=== PATIENT | male | born 1965 | race Caucasian/White ===

== ENCOUNTER → 2018-01-17 09:24 | Outpatient (CLI) | payer OTHER, SELFPAY ==
--- NOTE | 2018-01-17 09:24 | DT_ITS ---
This patient was seen during an EMR downtime January 15, 2018 - January 22, 2018. This patient may have a combination of paper and electronic documentation or all paper documentation. All documentation is viewable within the e-chart portion of [facility] for each patient visit.
[2018-01-22 04:18] LABS: Absolute Lymphocyte Count 1.56 X10^3/ul (0.83-4.51); Absolute Neutrophil Count 3.8 X10^3/uL (2.0-7.7); Basophil% 0.8 % (0-1); Eosinophils% 4.2 % (0-5); Hemoglobin 15.6 g/dl (13.0-16.5); Lymphocyte # 1.56 X10^3/ul (4.0); Lymphocyte % 25.2 % (19-41); Mean Corp Hgb Conc 34.7 g/gl (32-36); Mean Corpuscular Hgb 29.3 pg (27.0-32.0); Mean Corpuscular Volume 84.6 fL (80-94); Mean Platelet Vol. 10.7 fl (6.2-12.0); Monocyte% 8.6 % (0-10); Neutrophil # 3.78 X10^3/uL (2.7-7.7); POSITIVE COUNT NO; POSITIVE DIFFERENTIAL NO; POSITIVE MORPHOLOGY NO; Platelet Count 320 K/mm3 (150-450); RBC Distribution Width CV 13.5 % (11.6-14.6); RBC Distribution Width SD 41.7 fl (35.1-43.9); Red Blood Count 5.32 M/mm3 (4.6-6.2); White Blood Count 6.2 K/mm3 (4.4-11.0)
[2018-01-22 08:15] LABS: BUN 13 mg/dL (7-18); BUN/Creat Ratio 13.3 RATIO (10-20); Creatinine, Serum 0.98 mg/dL (0.70-1.30); EST Glomerular Filtration Rate 86 mL/min (>60); Est Glom Filt Rate - Afr Amer 104 mL/min (>60); Glucose 126 mg/dL (74-106); Protein, Total 7.6 g/dL (6.4-8.2)
[2018-01-22 08:16] LABS: ALB/GLOB Ratio 1.2 RATIO (0.9-2.4); AST(SGOT) 22 U/L (15-37); Alanine Aminotransfer ALT/SGPT 40 U/L (16-61); Albumin, Serum 4.1 g/dL (3.2-5.0); Alkaline Phosphatase 54 U/L (45-117); Anion Gap 9 (5-15); Calcium,Total 8.9 mg/dL (8.5-10.1); Chloride 104 mmol/L (98-107); Cholesterol 156 mg/dL (200); Globulin 3.5 g/dL (2.2-4.2); High Density Lipoprotein 51 mg/dL; PSA,Total - Annual Screen 2.34 ng/mL (0.00-4.00); Potassium 3.6 mmol/L (3.5-5.1); Sodium Level 140 mmol/L (136-145); Triglycerides 72 mg/dL; Very Low Density Lipoprotein 14 mg/dL (5-40)
[2018-01-22 08:17] LABS: Hemoglobin A1c 6.1 % (4.2-6.3); Microalbumin,Random Urine 21.7 mg/L (NO RANGE EST.)
== END ==
PROVIDERS: Family Provider Family Medicine; PCP Family Medicine; Visit Provider Family Medicine
DX: E11.9 Type 2 diabetes mellitus without complications (principal); I10 Essential (primary) hypertension; Z12.5 Encounter for screening for malignant neoplasm of prostate
CPT/HCPCS: 36415; 80053; 80061; 82043; 82570; 83036; 84153; 85025; G0103

== ENCOUNTER 2019-01-01 08:05 | Day surgery (SDC) | payer OTHER, SELFPAY ==
--- NOTE | 2019-01-01 | MASS_PTH ---
PATIENT: ZAC ROCHA LOC: [facility] [place] U#:[id number] AGE/SX: 53/M ROOM: RE01/01/[address]: Dr. Edward Kitchen MD : [id number] BED: DIS: 01/01/2019 SPEC #: [id number] RECD: 01/01/19 14:11 STATUS: JENNIFER EDGARDO #: [id number] ELLEN: 01/01/19 00:[address]: Edward Kitchen DEPT: SURGICAL PATHOLOGY RECD BY: Jacek Delgado ENTERED: 01/01/19 14:11 SP TYPE: Mass OTHR DR: Dr. Salvador Barnes, DO Tissues: Ear, NOS Procedures: PAS Fungus (control) Special Stain Group I Surgery Specimen Level IV HEADER OPERATION: Excision mass left ear PRE-OP DIAGNOSIS: Mass left ear, extra-auditory meatus TISSUE SUBMITTED: Left ear mass, extra-auditory meatus MICROSCOPIC DIAGNOSIS Left ear mass, biopsy: Inflamed verrucous keratosis. Negative for fungal organisms. See comment. AM:sean 01/02/19 COMMENT PASF stain with matched control supports the above diagnosis. MICROSCOPIC DESCRIPTION Slides are reviewed. GROSS DESCRIPTION Received in fixative is one container labeled with the patient's name and designated left ear mass, extra-auditory meatus. The specimen consists of one irregular fragment of santiago-yellow soft tissue/possible skin measuring 0.4 x 0.2 x 0.2 cm. The specimen is totally submitted in one cassette. / CE:sean 01/01/19 TC:5 CPT: 45839, 62959
[2019-01-01 08:46] VITALS: BP 132/92; PULSE 72; RESP 18; TEMP 36.8; O2SAT 98; BMI 30.5
[2019-01-01 09:06] LABS: Bedside Glucose 146 mg/dL (70-110)
[2019-01-01] MEDS: Bacitracin 500 UNITS/GM PACKET (11:45)
--- NOTE | 2019-01-01 11:49 | PCM.OPRPT ---
Report of Operation Date of Procedure: 01/01/19 Pre-Operative Diagnosis: Mass left external auditory meatus Post-Operative Diagnosis: See path report Surgery/Procedure Performed:: Excision mass left external auditory meatus Description of Surgical Findings:: Procedure the patient was placed supine on the operating room table. Sterile drapes are applied and the left external auditory meatus was prepped with Betadine solution. The mass appeared to involve half the circumference of the left external auditory meatus. 1% Xylocaine plain mixed with epinephrine was infiltrated around the mass and an elliptical shaped incision was outlined. The mass was completely excised. Excise specimen measured 1.5 x 1 cm in dimension. The wound was closed in layers with interrupted sutures of 5-0 nylon and 5-0 chromic. Bacitracin ointment was applied to the incision site and the procedure was considered terminated the patient was returned to his room in satisfactory condition. Edward Kitchen MD
[2019-01-01 12:08] VITALS: BP 128/84; BP 132/92; PULSE 59; RESP 16; TEMP 36.6; O2SAT 96
== END 2019-01-01 12:16 | disposition home or self-care (01) ==
LOC: SDC 08:06 → AC 08:08
PROVIDERS: Family Provider Family Medicine; PCP Family Medicine; Referring Provider Otolaryngology Otolaryngology/Facial Plastic Surgery; Visit Provider Otolaryngology Otolaryngology/Facial Plastic Surgery
PROC: (CPT 11442; principal; 2019-01-01 09:40)
DX: L82.0 Inflamed seborrheic keratosis (principal); I10 Essential (primary) hypertension; E11.9 Type 2 diabetes mellitus without complications
CPT/HCPCS: 11442; 82962; 88305; 88312

== ENCOUNTER → 2019-01-24 08:50 | Outpatient (CLI) | payer OTHER, SELFPAY ==
[2019-01-01 08:46] VITALS: BMI 30.5
[2019-01-24 10:07] LABS: Absolute Lymphocyte Count 2.16 X10^3/ul (0.83-4.51); Absolute Neutrophil Count 2.9 X10^3/uL (2.0-7.7); Basophil# 0.05 X10^3/uL; Basophil% 0.8 % (0-1); Eosinophil# 0.46 X10^3/uL; Eosinophils% 7.3 % (0-5); Hematocrit 41.9 % (40-54); Hemoglobin 14.8 g/dl (13.0-16.5); Lymphocyte # 2.16 X10^3/ul (4.0); Lymphocyte % 34.4 % (19-41); Mean Corp Hgb Conc 35.3 g/gl (32-36); Mean Corpuscular Hgb 29.8 pg (27.0-32.0); Mean Corpuscular Volume 84.3 fL (80-94); Mean Platelet Vol. 10.5 fl (6.2-12.0); Monocyte# 0.67 X10^3/uL; Monocyte% 10.7 % (0-10); Neutrophil # 2.93 X10^3/uL (2.7-7.7); Neutrophil % 46.6 % (47-70); Platelet Count 286 K/mm3 (150-450); RBC Distribution Width CV 13.8 % (11.6-14.6); RBC Distribution Width SD 42.6 fl (35.1-43.9); Red Blood Count 4.97 M/mm3 (4.6-6.2); White Blood Count 6.3 K/mm3 (4.4-11.0)
[2019-01-24 10:11] LABS: POSITIVE COUNT NO; POSITIVE DIFFERENTIAL NO; POSITIVE MORPHOLOGY NO
[2019-01-24 10:18] LABS: Hemoglobin A1c 5.9 % (4.2-6.3)
[2019-01-24 10:22] LABS: Microalbumin,Random Urine 12.1 mg/L (NO RANGE EST.); Microalbumin:Creatinine Ratio 5.5 mg/g CRE (<30 mg/g CRE)
[2019-01-24 10:25] LABS: ALB/GLOB Ratio 1.1 RATIO (0.9-2.4); AST(SGOT) 15 U/L (15-37); Alanine Aminotransfer ALT/SGPT 34 U/L (16-61); Albumin, Serum 3.8 g/dL (3.2-5.0); Alkaline Phosphatase 44 U/L (45-117); Anion Gap 6 (5-15); BUN 13 mg/dL (7-18); BUN/Creat Ratio 13.3 RATIO (10-20); Calcium,Total 8.9 mg/dL (8.5-10.1); Chloride 108 mmol/L (98-107); Cholesterol 144 mg/dL (200); Creatinine, Serum 0.98 mg/dL (0.70-1.30); EST Glomerular Filtration Rate 86 mL/min (>60); Est Glom Filt Rate - Afr Amer 104 mL/min (>60); Globulin 3.4 g/dL (2.2-4.2); Glucose 112 mg/dL (74-106); High Density Lipoprotein 55 mg/dL; Potassium 3.6 mmol/L (3.5-5.1); Protein, Total 7.2 g/dL (6.4-8.2); Sodium Level 139 mmol/L (136-145); Triglycerides 94 mg/dL; Very Low Density Lipoprotein 19 mg/dL (5-40)
== END ==
PROVIDERS: Family Provider Family Medicine; PCP Family Medicine; Referring Provider Family Medicine; Visit Provider Family Medicine
DX: Z00.00 Encounter for general adult medical examination without abnormal findings (principal); E11.9 Type 2 diabetes mellitus without complications; Z12.5 Encounter for screening for malignant neoplasm of prostate
CPT/HCPCS: 36415; 80053; 80061; 82043; 82570; 83036; 84153; 85025; G0103

== ENCOUNTER → 2020-01-28 13:25 | Outpatient (CLI) | payer OTHER, SELFPAY ==
[2020-01-28 15:16] LABS: PSA,Total - Annual Screen 1.96 ng/mL (0.00-4.00)
[2020-01-28 15:47] LABS: Hemoglobin A1c 6.5 % (3.8-5.6)
== END ==
PROVIDERS: Family Provider Family Medicine; PCP Family Medicine; Visit Provider Family Medicine
DX: Z00.00 Encounter for general adult medical examination without abnormal findings (principal); Z12.5 Encounter for screening for malignant neoplasm of prostate; E11.9 Type 2 diabetes mellitus without complications
CPT/HCPCS: 36415; 83036; 84153; G0103

== ENCOUNTER → 2020-03-24 10:05 | Outpatient (CLI) | payer OTHER, SELFPAY ==
[2020-03-24 13:17] LABS: ALB/GLOB Ratio 1.2 RATIO (0.9-2.4); AST(SGOT) 14 U/L (15-37); Alanine Aminotransfer ALT/SGPT 35 U/L (16-61); Alkaline Phosphatase 42 U/L (45-117); Anion Gap 10 (5-15); BUN 18 mg/dL (7-18); BUN/Creat Ratio 18.5 RATIO (10-20); Calcium,Total 9.1 mg/dL (8.5-10.1); Chloride 105 mmol/L (98-107); Creatinine, Serum 0.97 mg/dL (0.70-1.30); EST Glomerular Filtration Rate 86 mL/min (>60); Est Glom Filt Rate - Afr Amer 104 mL/min (>60); Globulin 3.3 g/dL (2.2-4.2); Glucose 140 mg/dL (74-106); Potassium 3.4 mmol/L (3.5-5.1); Protein, Total 7.3 g/dL (6.4-8.2); Sodium Level 139 mmol/L (136-145); T4 Free Direct 1.07 ng/dL (0.76-1.46); Thyroid Stim Hormone (TSH) 1.84 uIU/mL (0.358-3.74)
== END ==
PROVIDERS: PCP Family Medicine; Visit Provider Family Medicine
DX: E01.0 Iodine-deficiency related diffuse (endemic) goiter (principal); I10 Essential (primary) hypertension
CPT/HCPCS: 36415; 80053; 84439; 84443

== ENCOUNTER → 2020-08-21 16:27 | Outpatient (CLI) | payer BC, SELFPAY ==
[2020-08-21 18:46] LABS: Cholesterol 159 mg/dL (200); High Density Lipoprotein 58 mg/dL; Triglycerides 94 mg/dL; Very Low Density Lipoprotein 19 mg/dL (5-40)
== END ==
PROVIDERS: PCP Family Medicine; Visit Provider Family Medicine
DX: Z00.00 Encounter for general adult medical examination without abnormal findings (principal)
CPT/HCPCS: 36415; 80061

== ENCOUNTER → 2021-06-15 | Outpatient (CLI) | payer BC, SELFPAY | END | disposition home or self-care (01) | LOC: LABSPEC 06-16 16:47 | PROVIDERS: PCP Family Medicine; Visit Provider Family Medicine | DX: Z20.822 Contact with and (suspected) exposure to COVID-19 (principal) | CPT/HCPCS: 87635; U0005; U0003 ==

== ENCOUNTER 2021-10-18 12:43 | Outpatient (CLI) | payer BC, SELFPAY | END 2021-10-18 23:59 | disposition home or self-care (01) | PROVIDERS: PCP Family Medicine; Referring Provider Family Medicine; Visit Provider Family Medicine | DX: R00.2 Palpitations (principal) | CPT/HCPCS: 93225; 93226 ==

== ENCOUNTER → 2022-05-27 | Outpatient (CLI) | payer BC, SELFPAY ==
[2022-05-27 07:18] LABS: Absolute Lymphocyte Count 1.99 X10^3/uL (0.83-4.51); Absolute Neutrophil Count 3.2 X10^3/uL (2.0-7.7); Basophil# 0.05 X10^3/uL; Basophil% 0.8 % (0-1); Eosinophil# 0.35 X10^3/uL; Eosinophils% 5.5 % (0-5); Hematocrit 42.6 % (40-54); Hemoglobin 15.3 g/dL (13.0-16.5); Lymphocyte # 1.99 X10^3/ul (0.83-4.51); Lymphocyte % 31.3 % (19-41); Mean Corp Hgb Conc 35.9 g/dL (32-36); Mean Corpuscular Hgb 30.8 pg (27.0-32.0); Mean Corpuscular Volume 85.9 fL (80-94); Mean Platelet Vol. 9.9 fl (6.2-12.0); Monocyte# 0.71 X10^3/uL; Monocyte% 11.2 % (0-10); NRBC Flagged by Analyzer 0 % (0-5); Neutrophil # 3.24 X10^3/uL (2.7-7.7); Neutrophil % 50.9 % (47-70); Platelet Count 317 K/mm3 (150-450); RBC Distribution Width CV 12.5 % (11.6-14.6); RBC Distribution Width SD 39.3 fl (35.1-43.9); Red Blood Count 4.96 M/mm3 (4.6-6.2); White Blood Count 6.4 K/mm3 (4.4-11.0)
[2022-05-27 07:56] LABS: Microalbumin,Random Urine 8.8 mg/L (NO RANGE EST.); Microalbumin:Creatinine Ratio 4.6 mg/g CRE (<30 mg/g CRE)
[2022-05-27 08:11] LABS: Hemoglobin A1c 6.4 % (3.8-5.6)
[2022-05-27 08:39] LABS: ALB/GLOB Ratio 1.2 RATIO (0.9-2.4); AST(SGOT) 25 U/L (15-37); Alanine Aminotransfer ALT/SGPT 51 U/L (16-61); Albumin, Serum 3.9 g/dL (3.2-5.0); Alkaline Phosphatase 42 U/L (45-117); Anion Gap 7 (5-15); BUN 17 mg/dL (7-18); BUN/Creat Ratio 17.8 RATIO (10-20); Chloride 106 mmol/L (98-107); Cholesterol 154 mg/dL (200); Creatinine, Serum 0.96 mg/dL (0.70-1.30); EST Glomerular Filtration Rate 87 mL/min (>60); Est Glom Filt Rate - Afr Amer 105 mL/min (>60); Globulin 3.3 g/dL (2.2-4.2); Glucose 133 mg/dL (74-106); High Density Lipoprotein 47 mg/dL; Potassium 3.5 mmol/L (3.5-5.1); Protein, Total 7.2 g/dL (6.4-8.2); Sodium Level 140 mmol/L (136-145); Thyroid Stim Hormone (TSH) 2.43 uIU/mL (0.358-3.74); Triglycerides 135 mg/dL; Very Low Density Lipoprotein 27 mg/dL (5-40)
[2022-05-27 09:33] LABS: Vitamin B12 501 pg/mL (211-911); Vitamin D,25 Hydroxy 34.4 ng/mL
== END | disposition home or self-care (01) ==
LOC: LAB 07:04
PROVIDERS: PCP Family Medicine; Referring Provider Family Medicine; Visit Provider Family Medicine
DX: Z00.00 Encounter for general adult medical examination without abnormal findings (principal); E11.9 Type 2 diabetes mellitus without complications; R53.83 Other fatigue
CPT/HCPCS: 36415; 80053; 80061; 82043; 82306; 82570; 82607; 83036; 84443; 85025

== ENCOUNTER 2022-12-16 18:17 | Emergency (ER) | payer BC, SELFPAY ==
[2022-12-16 18:18] VITALS: BP 92/64; PULSE 57; RESP 18; TEMP 35.9; O2SAT 100
[2022-12-16 18:26] VITALS: BMI 32.5
--- NOTE | 2022-12-16 18:34 | RAD_ITS ---
STUDY: X-RAY - RIGHT FOOT CLINICAL: Male, 57 years old. fall TECHNIQUE: 3 view(s) of the foot. COMPARISON: None. FINDINGS: Normal talus, calcaneus, and tarsal bones. Normal visualized subtalar, talonavicular, calcaneocuboid, tarsal and tarsometatarsal articulations. Normal metatarsi. Normal metatarsophalangeal joint of the great toe. Normal tibial and fibular sesamoid bones. Normal interphalangeal joint of the great toe. Normal phalanges of the great toe. Normal second through fifth metatarsophalangeal joints. Normal interphalangeal joints and phalanges of the lesser toes. The soft tissue structures are unremarkable. RAD/Foot min 3 Views IMPRESSION: Normal x-ray examination of the foot. Electronically Signed: Elan Arellano MD at 18:56 EDT ,
--- NOTE | 2022-12-16 18:41 | RAD_ITS ---
STUDY: X-RAY - RIGHT ANKLE REASON FOR EXAM: Male, 57 years old. fall TECHNIQUE: 3 view(s) of the ankle. COMPARISON: None. FINDINGS: Bimalleolar fracture with widening of the ankle mortise. Normal visualized talus and calcaneus. The visualized subtalar, talonavicular, calcaneocuboid and tarsal articulations are normal. The soft tissue structures are unremarkable. RAD/Ankle min 3 Views IMPRESSION: Unstable bimalleolar fracture. Electronically Signed: Elan Arellano MD at 18:55 EDT ,
[2022-12-16] MEDS: oxyCODONE 5 MG Tablet PO ×2 (19:38→20:45)
--- NOTE | 2022-12-16 20:23 | EX.ED.DYSGE1 ---
HPI <SKYLAR Lorenzo - Last Filed: 12/16/22 20:32> History of Present Illness Chief Complaint: Lower Extremity Injury Narrative Narrative: Patient is a 57-year-old male with history of diabetes, hypertension presents the emergency department after sustaining a right ankle injury. Patient states he missed a step, rolling his right ankle. While the ankle is being moved coming to the emergency department, he did feel faint, he did become pale. On reassessment, the patient felt much better. Patient complains of pain to the entire ankle. No pain to the foot. He denies any numbness or tingling. Denies any other injury. [facility] <SKYLAR Lorenzo - Last Filed: 12/16/22 20:32> [facility] Medical History (Updated 12/16/22 @ 20:28 by SKYLAR Lorenzo) Diabetes type 2, controlled HTN (hypertension) Home Medications oxycodone-acetaminophen 5 mg-325 mg tablet (Percocet) 1 tab PO Q8H PRN pain 3 days #14 tabs 12/16/22 [Rx Last Taken Unknown] Allergy/AdvReac Type Severity Reaction Status Date / Time No Known Allergies Allergy Verified 12/16/22 18:17 Social History Smoking Status: Never smoker ROS <SKYLAR Lorenzo - Last Filed: 12/16/22 20:32> ROS ED ROS Narrative Constitutional: Negative for fever, chills, weight loss, weakness Eyes: Negative for vision loss, vision change, double vision ENT: Negative for any sore throat, ear pain, congestion Cardiovascular: Negative for any chest pain, tightness, palpitations Respiratory: Negative for any cough, sputum production, hemoptysis, dyspnea, dyspnea on exertion, orthopnea Gastrointestinal: Negative for any abdominal pain, nausea, vomiting, diarrhea, constipation, blood in stool, blood in vomit : Negative for any urinary frequency, dysuria, retention, blood in urine Muscle skeletal: Negative for any muscle joint pain, stiffness, myalgias, arthralgias, neck pain, back pain. Patient complaining of right ankle pain, severely around the lateral and medial malleolus. Neurological: Negative for any headache, syncope, numbness or tingling, dizziness Skin: Negative for any rashes, lumps, itching, abrasions, lacerations Psychiatric: Negative for any depression, anxiety, stress, suicidal ideation, homicidal ideation Hematologic: Negative for any easy bruising, excessive bruising, easy bleeding Allergies: Negative for any eczema, hives, rash EXAM <SKYLAR Lorenzo - Last Filed: 12/16/22 20:32> Physical Exam Narrative Exam Narrative: Vital signs reviewed. After patient had laid down, and his right foot was not moving, the patient was feeling better. I believe the patient had a vagal episode when his foot was moving secondary to the pain. Patient appears well at this time. HEET: Head normocephalic atraumatic, TMs clear bilaterally. Posterior pharynx is clear, moist mucous membranes. Nares clear bilaterally. Neck: Supple with no lymphadenopathy or tenderness. No signs of meningismus, negative jolt sign. Cardiac: Regular rate and rhythm no murmurs gallops or rubs, equal peripheral pulses bilaterally. Respiratory: Lungs clear to auscultation bilaterally. No chest tenderness. Abdomen: Soft, nontender, nondistended. No abdominal bruit or pulsatile masses. No hepatosplenomegaly Extremities: Patient has ecchymosis, edema to both the lateral and medial malleolus. He has a +2 pedal pulse. Patient is able to dorsiflex his foot, he is able to hold this there, however patient does have increased pain. No neurological focal deficit. Neuro: Cranial nerves II through XII intact, no focal neurological deficits. Skin: Clean dry and intact with no rash, purpura, petechiae, vesicles or pustules. Backs/flank: No CVA tenderness, no midline spinal tenderness, no deformity. Psych: Normal mood and affect. No SI, HI or acute psychosis. Const Vital Signs: 12/16/22 18:18 Temperature 96.7 F L Temperature Source Temporal Pulse Rate 57 L Respiratory Rate 18 Blood Pressure 92/64 Blood Pressure Mean 73 Pulse Ox 100 Oxygen Delivery Method Room Air <Dr. Edwin Bell MD - Last Filed: 12/16/22 21:05> Physical Exam Const Vital Signs: 12/16/22 18:18 Temperature 96.7 F L Temperature Source Temporal Pulse Rate 57 L Respiratory Rate 18 Blood Pressure 92/64 Blood Pressure Mean 73 Pulse Ox 100 Oxygen Delivery Method Room Air MDM <SKYLAR Lorenzo - Last Filed: 12/16/22 20:32> MDM Radiography Diagnostic Testing: Clinical Impression(s) from Imaging Studies Foot X-Ray 12/16/22 18:34 IMPRESSION: Normal x-ray examination of the foot. Electronically Signed: Elan Arellano MD at 18:56 EDT Reading Location ID and State: [facility] / [place] , Service support , Ankle X-Ray 12/16/22 18:41 IMPRESSION: Unstable bimalleolar fracture. Electronically Signed: Elan Arellano MD at 18:55 EDT , Treatment and Re-Evaluation :: All radiologic examinations were read, reviewed by the emergency department attending. From these reads, a plan of care will be put in place. Patient appears well on my initial examination however patient did have a near syncopal episode on arrival secondary to pain and moving of his right ankle which was broken. Patient on reassessment was feeling much better. Patient had no other injury. Patient presents the emergency department with right ankle pain after a fall. Patient did receive x-rays of the right foot to ensure that there is no fifth metatarsal fracture as well as a right ankle x-ray. Right foot was negative. Patient's right ankle x-ray shows a unstable bimalleolar fracture. We did speak with podiatry, the patient will be placed in a posterior short leg OCL with a sugar-tong. Patient tolerated well. Patient was given oxycodone 5 mg x 2 here in the emergency department. He will follow-up closely with podiatry within the next week. He does have crutches at home. He will be nonweightbearing. He will ice and elevate. All questions were answered, he was given return precaution. After the splint, patient had no neurological focal deficit. He is happy with the plan of care, patient stable for discharge <Dr. Edwin Bell MD - Last Filed: 12/16/22 21:05> [facility] Radiography Diagnostic Testing: Clinical Impression(s) from Imaging Studies Foot X-Ray 12/16/22 18:34 IMPRESSION: Normal x-ray examination of the foot. Electronically Signed: Elan Arellano MD at 18:56 EDT Reading Location ID and State: [address] [place] [address] , Service support , Ankle X-Ray 12/16/22 18:41 IMPRESSION: Unstable bimalleolar fracture. Electronically Signed: Elan Arellano MD at 18:55 EDT , Treatment and Re-Evaluation Comments:: Seen and evaluated independently and in conjunction with nurse practitioner. Agree with notes above unless documented otherwise. Accidentally rolled his right ankle trouble bearing weight after that. Pain and swelling ankle. No other injury. On exam, pain, tenderness, swelling to the right medial and lateral malleoli, no base of the fifth metatarsal tenderness, no proximal fibular tenderness, pain but no gross instability with the lateral forces placed to the talus. Neurovascularly intact distally. Three-view x-ray series of the right ankle on my interpretation shows mildly displaced bimalleolar fracture without dislocation. Three-view x-ray series of the right foot on my interpretation is negative for any foot fracture/bony injury. We splinted the patient after discussing with podiatry he will follow-up, given analgesics, he is okay going home with crutches which she has at home. <Dr. Edwin Bell MD - Last Filed: 12/16/22 21:05> Lower Extremity Splints Lower Extremity Splint: Orthoglass (Leg posterior with sugar-tong; neurovascular intact distally after placement) Splint Fabrication: Fabricated Location: Right Discharge Plan Triage Chief Complaint: Lower Extremity Injury ED Midlevel Provider: Margarito Szymanski ED Provider: Edwin Bell Dx/Rx/DC Orders Clinical Impression: Fall, Bimalleolar ankle fracture Instructions: ED Ankle Fracture Prescriptions: New oxycodone-acetaminophen [Percocet] 5-325 mg tablet 1 tab PO Q8H PRN (Reason: pain) 3 Days Qty: 14 0RF Primary Care Provider: Salvador Barnes Referrals: Fox Wise DPM [Med Staff - Active Staff] - (Please follow-up early this upcoming week) Salvador Barnes DO [Primary Care Provider] - Activity Restrictions/Additional Instructions: You will use crutches, you are nonweightbearing. You need to follow-up with Dr. Wise this upcoming week. You will elevate your leg at all times while resting. You may ice. Do not get this temporary cast wet. Disposition Disposition: Home, Self Care Discharge Date/Time: 12/16/22 20:49
== END 2022-12-16 20:49 | disposition home or self-care (01) ==
PROVIDERS: Emergency Provider Emergency Medicine; PCP Family Medicine; Visit Provider Emergency Medicine
DX: S82.841A Displaced bimalleolar fracture of right lower leg, initial encounter for closed fracture (principal); X58.XXXA Exposure to other specified factors, initial encounter
CPT/HCPCS: 73610; 73630; 99283

== ENCOUNTER → 2022-12-20 | Outpatient (CLI) | payer BC, SELFPAY ==
[2022-12-20 15:37] LABS: Absolute Lymphocyte Count 2.51 X10^3/uL (0.83-4.51); Basophil# 0.06 X10^3/uL; Basophil% 0.8 % (0-1); Eosinophil# 0.39 X10^3/uL; Eosinophils% 5.1 % (0-5); Hemoglobin 15.1 g/dL (13.0-16.5); Lymphocyte # 2.51 X10^3/ul (0.83-4.51); Lymphocyte % 32.9 % (19-41); Mean Corp Hgb Conc 34.3 g/dL (32-36); Mean Corpuscular Volume 87.3 fL (80-94); Mean Platelet Vol. 10.2 fl (6.2-12.0); Monocyte% 9.2 % (0-10); NRBC Flagged by Analyzer 0 % (0-5); Neutrophil # 3.95 X10^3/uL (2.7-7.7); Neutrophil % 51.6 % (47-70); Platelet Count 353 K/mm3 (150-450); RBC Distribution Width CV 12.6 % (11.6-14.6); RBC Distribution Width SD 39.8 fl (35.1-43.9); Red Blood Count 5.04 M/mm3 (4.6-6.2); White Blood Count 7.6 K/mm3 (4.4-11.0)
[2022-12-20 15:55] LABS: ALB/GLOB Ratio 1.1 RATIO (0.9-2.4); AST(SGOT) 20 U/L (15-37); Alanine Aminotransfer ALT/SGPT 37 U/L (16-61); Albumin, Serum 3.8 g/dL (3.2-5.0); Alkaline Phosphatase 45 U/L (45-117); Anion Gap 8 (5-15); BUN 17 mg/dL (7-18); Calcium,Total 9.5 mg/dL (8.5-10.1); Chloride 103 mmol/L (98-107); EST Glomerular Filtration Rate 83 mL/min (>60); Est Glom Filt Rate - Afr Amer 100 mL/min (>60); Globulin 3.4 g/dL (2.2-4.2); Glucose 134 mg/dL (74-106); Potassium 3.7 mmol/L (3.5-5.1); Protein, Total 7.2 g/dL (6.4-8.2); Sodium Level 138 mmol/L (136-145)
[2022-12-20 16:22] LABS: Hemoglobin A1c 6.2 % (3.8-5.6)
== END | disposition home or self-care (01) ==
LOC: BFHLAB 13:24
PROVIDERS: PCP Family Medicine; Referring Provider Family Medicine; Visit Provider Family Medicine
DX: Z01.812 Encounter for preprocedural laboratory examination (principal); E11.9 Type 2 diabetes mellitus without complications
CPT/HCPCS: 36415; 80053; 83036; 85025

== ENCOUNTER → 2022-12-26 | Outpatient (CLI) | payer BC, SELFPAY ==
--- NOTE | 2022-12-26 13:50 | RAD_ITS ---
INDICATION: PREOP EXAMINATION/TECHNIQUE: X-RAY - XR Chest 2 Views COMPARISON: None. Findings: Frontal and lateral views of the chest. LUNG PARENCHYMA: No acute focal airspace disease or mass lesion. PLEURA: No pleural effusion. No pneumothorax. HEART/GREAT VESSELS: Cardiomediastinal silhouette is unremarkable. BONES: Osseous structures are unremarkable for age. RAD/Chest PA and Lateral IMPRESSION: Chest with no acute disease. Electronically Signed: Kunal Ruffin MD at 2:20 EDT ,
== END | disposition home or self-care (01) ==
LOC: RAD 13:49
PROVIDERS: PCP Family Medicine; Referring Provider Student in an Organized Health Care Education/Training Program; Visit Provider Student in an Organized Health Care Education/Training Program
DX: Z01.811 Encounter for preprocedural respiratory examination (principal)
CPT/HCPCS: 71046

== ENCOUNTER 2022-12-30 11:31 | Day surgery (SDC) | payer BC, SELFPAY ==
[2022-12-30] VITALS (7 sets, daily range): BP systolic 128–154; BP diastolic 80–94; PULSE 73–98; RESP 16–20; TEMP 37.1–37.4; O2SAT 92–96; BMI 31.6
--- NOTE | 2022-12-30 11:54 | DCINST_ITS ---
Discharge Instructions Diet Discharge Diet: No restrictions Activity Discharge Activity: May Not Drive and May Shower (May shower with cast bag covering right lower extremity. Keep dressings clean, dry, and intact to the right foot) Weight Bearing Status: No weight bearing (To remain nonweightbearing to right lower extremity with assistance of crutches or knee scooter) Keep extremity elevated above heart level: Right Leg (Elevate right lower extremity at all times of rest to control postoperative edema) Dressing / Incision Call your doctor if you observe: Fever of 101 or Higher, Chest pain, Calf discomfort and Uncontrolled pain Change Dressing in: leave in place till F/U Remove Dressing in: do not remove dressing (Physician will change dressings at first postoperative appointment) Cleanse incision/area with: Do not get Incision Wet and Keep Dressing Clean & Dry (Please keep dressings clean, dry, and intact to the right leg) Follow Up Care Please Follow Up With: Fox Wise DPM When: Patient has first postoperative appointment next week in office Test Results: Test results from this visit will be discussed in further detail at your follow- up appointment, if applicable. Discharge Plan Admission Attending Provider: Fox Wise Primary Care Provider: Salvador Barnes Discharge Orders/Prescriptions Prescriptions: New doxycycline hyclate 100 mg capsule 100 mg PO DAILY Qty: 10 0RF oxycodone-acetaminophen 5-325 mg tablet 1 tab PO Q6H PRN (Reason: pain) 7 Days Qty: 28 0RF aspirin 325 mg capsule 325 mg PO DAILY Qty: 20 0RF No Action oxycodone-acetaminophen [Percocet] 5-325 mg tablet 1 tab PO Q8H PRN (Reason: pain) 3 Days Qty: 14 0RF amlodipine 5 mg Tablet 5 mg PO DAILY losartan-hydrochlorothiazide 100-25 mg Tablet 1 tab PO DAILY metformin 1,000 mg Tablet 1,000 mg PO DAILY multivitamin Capsule 1 cap PO DAILY fluoxetine [Prozac] 20 mg Capsule 20 mg PO DAILY Zyrtec 10 mg Capsule 10 mg PO DAILY Ozempic 1 mg/dose (2 mg/1.5 mL) Pen Injector 1 mg SUBCUT FR Referrals / Follow Up: Salvador Barnes DO [Primary Care Provider] - Disposition Disposition (needs filled in before D/C Order can be placed): Home, Self Care
[2022-12-30] MEDS: Lactated Ringers 1,000 ML 15 ML IV (12:15)
--- NOTE | 2022-12-30 12:45 | RAD_ITS ---
STUDY: X-RAY - RIGHT ANKLE REASON FOR EXAM: Male, 57 years old. ORIF, ANKLE TECHNIQUE: 8 view(s) of the ankle. COMPARISON: December 16, 2022 FINDINGS: Postsurgical changes status post reduction internal fixation of distal tibial and fibular fractures with indwelling orthopedic hardware. Fracture fragments are in anatomic alignment and position . RAD/Ankle min 3 Views IMPRESSION: Postsurgical changes status post open reduction internal fixation of trimalleolar fracture. Electronically Signed: Collins Barillas MD at 19:44 EDT ,
[2022-12-30] MEDS: Cefazolin 2 GM in 0.9% Normal Saline 100 ML IV (12:47)
[2022-12-30 12:50] LABS: Bedside Glucose 114 mg/dL (74-106)
--- NOTE | 2022-12-30 16:16 | OP.PCM_ITS ---
Problems Associated Problem List Diagnoses (1) Displaced bimalleolar fracture of right ankle: (2) Pain in right lower leg: (3) Type 2 diabetes mellitus without complications: Report of Operation Date of Procedure: 12/30/22 Pre-Operative Diagnosis: 1. Displaced bimalleolar right ankle fracture Post-Operative Diagnosis: 1. Displaced bimalleolar right ankle fracture Surgery/Procedure Performed:: ORIF right ankle fracture Description of Surgical Findings:: See operative note for findings Surgeon: Fox Wise cardiac monitor: Torri Walter DPM PGY-1 Type of Anesthesia: Block,Regional (Popliteal block Right Leg) and General Specimen's removed: None Drains: None Estimated Blood Loss (mL): <15mL Description of Procedure: HPI/Indications: This is a 57-year-old male who presents to the office with displaced bimalleolar right ankle fracture. He states injury occurred 12/16/2022 when going down steps missing the last step with the ankle rolling under him. States he went to [facility] ED had radiographs obtained demonstrating displaced bimalleolar right ankle fracture. He was placed into a posterior splint and sugar-tong cast and dispensed crutches to be nonweightbe aring to the right leg. He admits to being diabetic with recent A1c of 6.2%. Discussed surgical fixation of the fracture site as the fracture is unstable and surgery is essential to fix the fracture fragments and restore alignment of the ankle joint. I reviewed his condition and treatment options with him. He has an unstable fracture of the right ankle with limiting pain and significant symptoms despite nonsurgical care. Patient would like to proceed with surgical intervention. We discussed procedure in great detail. Reviewed the rationale of this with the patient in great detail. We discussed possible benefits versus risks and potential complications in detail. Advised patient the risk include but are not limited to the following: Pain, continued pain, complex regional pain syndrome, deformity, continue deformity, recurrence, overcorrection, under correction, numbness/neuritis, swelling, scarring, poor cosmetic result, bleeding, hardware failure, symptomatic hardware, the need for further surgery/procedures, fracture, nonunion, malunion, delayed union, nonhealing/delayed healing, dehiscence, infection, blood clots, allergic reaction, transfer lesions, postoperative arthritis, weakness, shoe gear problems, inability to walk, inability to wear shoes, stroke, heart attack, addiction pain medication, loss of function, loss of limb, and loss of life. Patient expressed understanding of these and agreement. Patient was able to repeat these back. The alternative options were discussed and reviewed with the patient in great detail, reviewed all risks versus possible benefits of all options. Typical postoperative course was reviewed. Patient expressed understanding and agreement. Consent forms were reviewed with the patient and the patient signed them freely. No guarantees were given, no promises were made. He has been cleared by his PCP for surgery. I reviewed all diagnostic data prior to surgery. Operative limb was signed prior to entering the OR. He will undergo ORIF of the right ankle at [facility] on 12/30/2022. Procedure: Patient was brought into the operating room under mild sedation and placed on the table in the supine position. Following IV sedation and induction of general anesthesia pneumatic thigh tourniquet was placed about the patient's right thigh. A bump was placed under the right hip. And the right leg was elev ated with a blanket bump. The right leg was then scrubbed, prepped, and draped in the usual aseptic manner. An Esmarch bandage was utilized to exsanguinate the right foot and leg and the pneumatic thigh tourniquet was inflated to 300 mmHg. At this time attention was directed to the right leg where prominent landmarks were mapped out under the guidance of fluoroscopy and the level of the fractures were identified. Next, a linear incision was made overlying the lateral fibula utilizing a #15 blade. Incision was deepened through sharp and blunt dissection. Care was taken to identify all vital neurovascular structures and retract these from the surgical site. Incision was carried down to the level of bone and the fibular fracture was identified and transected at the fracture site. Fracture site was debrided of remaining hematoma and fragments and interposed soft tissue utilizing a rongeur. The fracture was then flushed with copious amounts of normal sterile saline. Fracture fragment was then reduced utilizing a lobster claw clamp. Reduction was confirmed in multiple fluoroscopic views. At this time following AO principles a 3.5 mm x 32 mm titanium cortical lag screw was placed across the fracture site. The reduction clamp was then removed and reduction confirmed in multiple fluoroscopic views. Next following AO principles a right locking distal titanium 8 hole fibular plate was anchored to the fibula utilizing 2 olive wires. Position of the plate was confirmed in multiple fluoroscopic views. Next, following AO principles the most distal holes of the fibular plate were filled with six 3.0 mm titanium locking screws measuring 10 mm, 12 mm, 14 mm x 2. And just below the interfrag screw a 3.5 mm x 14 mm titanium locking screw was placed. Continuing to move distal to proximal the remaining holes were filled with a 3.5 mm x 16 mm titanium locking screw, a 3.5 mm x 12 mm cortical screw in the oblong hole, a 3.5 mm x 12 mm locking screw, and a 3.5 mm x 14 mm cortical screw. The site was then flushed with copious amounts of normal sterile saline. Fibular reduction was confirmed multiple fluoroscopic views and deemed excellent. At this time attention was directed the medial aspect of the ankle overlying the medial malleoli are fracture fragment where a J shaped incision was performed overlying the medial malleolus utilizing a #15 blade. Incision was deepened utilizing sharp and blunt dissection care was taken to identify and retract all vital neurovascular structures from the surgical site. The medial malleolar fracture was identified and transected and the site was debrided utilizing a rongeur. A pointed reduction clamp was utilized to reduce the medial malleolar fracture which was confirmed in multiple fluoroscopic views. Next, following AO principles a 3 hole titanium medial hook plate was applied to the medial malleolus and following AO principles from proximal to distal the holes were filled with a 3.5 mm x 26 mm titanium locking screw, a 3.5 mm x 24 mm titanium locking screw, a 3.0 mm x 16 mm titanium locking screw, and a 3.0 mm x 12 mm titanium locking screw. Reduction clamp was removed and fixation was viewed in multiple fluoroscopic views. It is noted that the hook plate was able to reduce the small fracture fragment in near anatomic position. Ankle joint following fixation of fracture fragments is noted to be in good anatomic alignment. Hook test was performed and negative for instability of the syndesmosis. At this time final fluoroscopic images were obtained and reviewed. Next, incision sites were flushed with copious amounts of normal sterile saline. Medial incision deep tissues were closed with 2-0 Vicryl, subcutaneous tissues were closed with 4-0 Monocryl, and skin reapproximated with 2-0 Prolene in simple interrupted fashion. Next, it is noted that a small defect of the fibular margin was noted and filled with 0.3 cc of augment. Lateral incision deep tissues were closed with 2-0 Vicryl, subcutaneous tissues closed with 4-0 Monocryl, and the skin reapproximated with 2-0 Prolene in simple interrupted fashion. At this time the pneumatic thigh tourniquet was deflated and a prompt hyperemic response was noted to the digits of the right foot. Incision sites were dressed with Betadine soaked Adaptic, 4 x 4 gauze, ABD, Kerlix, Webril cast padding, 4 inch Omar, 6 inch Omar. A well molded posterior splint was applied and sugar-tong cast to the right lower extremity and anchored with a 4 inch Omar and 6 inch Omar and a modified Martínez compression style. The patient tolerated procedure and anesthesia well was transported to PACU vital signs stable vascular status intact to the right foot. Patient did receive a popliteal block in PACU by anesthesia team following procedure for postoperative pain control. Postoperative discharge instructions were given to family outlining postoperative care including to keep the dressings clean, dry, and intact to the right lower extremity. He is to remain strictly nonweightbearing to the right lower extremity with the assistance of crutches or knee scooter. He is to leave dressings intact to the right lower extremity. Family understands our discussion following surgery in regards to postoperative care. Postoperative images were obtained and reviewed prior to leaving PACU. He has his first postoperative appointment with me in office next week. Grafts/Implants Used: Distal fibular locking plate; medial hook plate; Screws x 14 Complications None Admit VTE Documentation VTE Present on Admission: No VTE Mechan Device Prophylaxis: SCD's VTE Pharm Prophylaxis ordered?: Yes
--- NOTE | 2022-12-30 16:20 | RAD_ITS ---
STUDY: X-RAY - RIGHT ANKLE REASON FOR EXAM: Male, 57 years old. Postop TECHNIQUE: 4 view(s) of the ankle. COMPARISON: December 16, 2022. FINDINGS: Postsurgical changes status post open reduction internal fixation and casting of bimalleolar fractures with fracture fragments in anatomic alignment and position. . RAD/Ankle min 3 Views IMPRESSION: Status post ORIF and casting of bimalleolar fractures. Electronically Signed: Collins Barillas MD at 19:58 EDT ,
[2022-12-30 16:35] LABS: Bedside Glucose 169 mg/dL (74-106)
== END 2022-12-30 18:19 | disposition home or self-care (01) ==
LOC: SDC 11:39 → AC 11:40
PROVIDERS: PCP Family Medicine; Referring Provider Student in an Organized Health Care Education/Training Program; Visit Provider Student in an Organized Health Care Education/Training Program
PROC: (CPT 27814; principal; 2022-12-30 13:25)
DX: S82.841A Displaced bimalleolar fracture of right lower leg, initial encounter for closed fracture (principal); E11.9 Type 2 diabetes mellitus without complications; G47.33 Obstructive sleep apnea (adult) (pediatric); I10 Essential (primary) hypertension; F32.A Depression, unspecified; Z79.899 Other long term (current) drug therapy; Z79.84 Long term (current) use of oral hypoglycemic drugs; W19.XXXA Unspecified fall, initial encounter
CPT/HCPCS: 27814; 64450; 01480; 73610; 76000; 82962; C1713; J7120; J2405

== ENCOUNTER → 2023-06-05 | Outpatient (CLI) | payer BC, SELFPAY ==
--- NOTE | 2023-06-05 07:49 | US_ITS ---
STUDY: ABDOMINAL ULTRASOUND - RIGHT UPPER QUADRANT REASON FOR VISIT: Male, 57 years old. Right upper quadrant pain. TECHNIQUE: Ultrasound evaluation of the right upper quadrant was performed with real-time and static valenzuela-scale imaging. TECHNICAL QUALITY: Limited by bowel gas. COMPARISON: None. FINDINGS: Liver: The liver measures 18.8 cm. There is increased echogenicity consistent with fatty infiltration. The bile ducts are within normal limits. There is hepatic color flow. The direction of portal flow is hepatopetal. There is no demonstrated mass lesion. Gallbladder: Normal distended gallbladder. The gallbladder wall measures 2 mm. There is a negative sonographic Bain''s sign. There is trace pericholecystic fluid. There is a solitary echogenic gallstone within the gallbladder. Common Bile Duct (C.B.D.): The common bile duct measures 5 mm. Pancreas: The pancreatic head and body are within normal limits. The pancreatic tail is not well visualized due to bowel gas. There is no demonstrated pancreatic mass or cyst. Right Kidney: Normal size of the right kidney. The right kidney measures 11.7 cm. Normal renal cortex. There is no demonstrated renal mass or cyst. There is no right hydronephrosis. US/Gallbladder IMPRESSION: Enlarged, fatty liver. No focal hepatic lesions identified. Gallstone with trace pericholecystic fluid. No gallbladder wall thickening. Negative sonographic Bain''s. Therefore, there are no definite sonographic findings of acute cholecystitis. Electronically Signed: Cory Gardner MD at 9:30 EDT ,
== END | disposition home or self-care (01) ==
LOC: US 07:48
PROVIDERS: PCP Family Medicine; Referring Provider Family Medicine; Visit Provider Family Medicine
DX: R10.11 Right upper quadrant pain (principal)
CPT/HCPCS: 76705

== ENCOUNTER → 2023-12-07 | Outpatient (CLI) | payer BC, SELFPAY ==
[2023-12-07 17:43] LABS: Absolute Lymphocyte Count 1.83 X10^3/uL (0.83-4.51); Absolute Neutrophil Count 3.5 X10^3/uL (2.0-7.7); Basophil# 0.07 X10^3/uL; Basophil% 1.1 % (0-1); Eosinophils% 4.7 % (0-5); Hematocrit 49.1 % (40-54); Hemoglobin 17.1 g/dL (13.0-16.5); Lymphocyte # 1.83 X10^3/ul (0.83-4.51); Lymphocyte % 28.7 % (19-41); Mean Corp Hgb Conc 34.8 g/dL (32-36); Mean Corpuscular Hgb 29.4 pg (27.0-32.0); Mean Corpuscular Volume 84.4 fL (80-94); Mean Platelet Vol. 10.3 fl (6.2-12.0); Monocyte# 0.71 X10^3/uL; Monocyte% 11.1 % (0-10); NRBC Flagged by Analyzer 0 % (0-5); Neutrophil # 3.46 X10^3/uL (2.7-7.7); Neutrophil % 54.2 % (47-70); Platelet Count 306 K/mm3 (150-450); RBC Distribution Width CV 13.3 % (11.6-14.6); RBC Distribution Width SD 41.3 fl (35.1-43.9); Red Blood Count 5.82 M/mm3 (4.6-6.2); White Blood Count 6.4 K/mm3 (4.4-11.0)
[2023-12-07 18:40] LABS: ALB/GLOB Ratio 1.2 RATIO (0.9-2.4); AST(SGOT) 22 U/L (15-37); Alanine Aminotransfer ALT/SGPT 42 U/L (16-61); Albumin, Serum 4.2 g/dL (3.2-5.0); Alkaline Phosphatase 57 U/L (45-117); Anion Gap 8 (5-15); BUN 24 mg/dL (7-18); BUN/Creat Ratio 24.2 RATIO (10-20); Calcium,Total 9.6 mg/dL (8.5-10.1); Chloride 104 mmol/L (98-107); Cholesterol 191 mg/dL (200); Creatinine, Serum 0.99 mg/dL (0.70-1.30); EST Glomerular Filtration Rate 83 mL/min (>60); Est Glom Filt Rate - Afr Amer 100 mL/min (>60); Globulin 3.6 g/dL (2.2-4.2); Glucose 129 mg/dL (74-106); High Density Lipoprotein 58 mg/dL; PSA,Total - Annual Screen 2.69 ng/mL (0.00-4.00); Potassium 3.7 mmol/L (3.5-5.1); Protein, Total 7.8 g/dL (6.4-8.2); Sodium Level 138 mmol/L (136-145); Triglycerides 159 mg/dL; Very Low Density Lipoprotein 32 mg/dL (5-40)
[2023-12-08 15:23] LABS: Microalbumin,Random Urine 9.6 mg/L (NO RANGE EST.); Microalbumin:Creatinine Ratio 10.8 mg/g CRE (<30 mg/g CRE)
== END | disposition home or self-care (01) ==
LOC: BFHLAB 16:23
PROVIDERS: PCP Family Medicine; Referring Provider Family Medicine; Visit Provider Family Medicine
DX: I10 Essential (primary) hypertension (principal); E11.9 Type 2 diabetes mellitus without complications; Z12.5 Encounter for screening for malignant neoplasm of prostate
CPT/HCPCS: 36415; 80053; 80061; 82043; 82570; 84153; 85025; G0103

== ENCOUNTER 2024-09-29 23:02 | Emergency (ER) | payer BC, SELFPAY ==
[2024-09-29 23:02] VITALS: BP 77/48; PULSE 60; RESP 16; TEMP 36.6; O2SAT 99; BMI 29.8
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
[2024-09-29] MEDS: Lidocaine 1% (20 ml mdv) 20 ML Vial 8 ML INFILT (23:20)
[2024-09-29] MEDS: Diphth,Pertuss(Acell),Tet Vac 0.5 ML Vial IM (23:20)
--- NOTE | 2024-09-29 23:30 | RAD_ITS ---
PROCEDURE: FINGER(S) MIN 2 VIEWS REASON FOR EXAM: Injury TECHNIQUE: 3 view(s) of the right middle finger COMPARISON: None FINDINGS: There is a significantly comminuted fracture of the tuft of the distal phalanx of the 3rd finger. Significant soft tissue laceration is present. Tiny radiopaque debris throughout the soft tissues in this region may represent bone fragments versus foreign bodies. RAD/Finger(s) Min 2 Views IMPRESSION: 1. Comminuted fracture of the tuft of the distal phalanx of the 3rd digit, as d escribed above. Reading Location: [facility]
[2024-09-30] MEDS: Cephalexin 250 MG Capsule 500 MG PO (00:12)
[2024-09-30] MEDS: HYDROcodone Bitartrate/Apap 5/325 Tablet PO (00:13)
[2024-09-30 00:17] VITALS: BP 115/65
== END 2024-09-30 00:46 | disposition home or self-care (01) ==
PROVIDERS: Emergency Provider Emergency Medicine; PCP Family Medicine; Visit Provider Emergency Medicine
DX: S62.632B Displaced fracture of distal phalanx of right middle finger, initial encounter for open fracture (principal); E11.9 Type 2 diabetes mellitus without complications; I10 Essential (primary) hypertension; W23.0XXA Caught, crushed, jammed, or pinched between moving objects, initial encounter; Z79.84 Long term (current) use of oral hypoglycemic drugs; Z79.85 Long-term (current) use of injectable non-insulin antidiabetic drugs; Z79.899 Other long term (current) drug therapy; Z23 Encounter for immunization
CPT/HCPCS: 12002; 73140; 90471; 90715; 99283

== ENCOUNTER 2024-10-06 19:14 | Inpatient (IN) | payer BC, SELFPAY ==
[2024-10-06 19:16] VITALS: BP 137/80; PULSE 70; RESP 18; TEMP 36.4; O2SAT 100; BMI 29.0
[2024-10-06 19:18] VITALS: BP 137/80; PULSE 70; RESP 18; TEMP 36.4; O2SAT 100
--- NOTE | 2024-10-06 19:46 | RAD_ITS ---
PROCEDURE: Right finger radiographs REASON FOR EXAM: Pain, trauma, infection TECHNIQUE: Three views of the right middle finger COMPARISON: 09/29/2024 FINDINGS: See impression RAD/Finger(s) Min 2 Views IMPRESSION: Redemonstration of the acute comminuted fracture of the tuft of the 3rd digit. Mild interval volar displacement of the distal fracture fragment. Progressive soft tissue emphysema surrounding the fracture site. No radiopaque foreign body. No new fracture or dislocation. Reading Location: [facility]
[2024-10-06 19:57] LABS: Absolute Lymphocyte Count 2.07 X10^3/uL (0.83-4.51); Absolute Neutrophil Count 4.3 X10^3/uL (2.0-7.7); Basophil# 0.05 X10^3/uL; Basophil% 0.7 % (0-1); Eosinophil# 0.33 X10^3/uL; Eosinophils% 4.4 % (0-5); Lymphocyte # 2.07 X10^3/ul (0.83-4.51); Lymphocyte % 27.5 % (19-41); Mean Corp Hgb Conc 35.7 g/dL (32-36); Mean Corpuscular Hgb 29.9 pg (27.0-32.0); Mean Corpuscular Volume 83.8 fL (80-94); Mean Platelet Vol. 9.9 fl (6.2-12.0); Monocyte# 0.81 X10^3/uL; Monocyte% 10.8 % (0-10); NRBC Flagged by Analyzer 0 % (0-5); Neutrophil # 4.25 X10^3/uL (2.7-7.7); Neutrophil % 56.3 % (47-70); Platelet Count 403 K/mm3 (150-450); RBC Distribution Width CV 13.3 % (11.6-14.6); RBC Distribution Width SD 40.9 fl (35.1-43.9); Red Blood Count 5.01 M/mm3 (4.6-6.2); White Blood Count 7.5 K/mm3 (4.4-11.0)
--- NOTE | 2024-10-06 19:57 | EX.ED.DYSGE1 ---
HPI <NAA Hall - Last Filed: 10/06/24 20:40> History of Present Illness Chief Complaint: Wound Check Narrative Narrative: 59-year-old male had a right middle finger injury on 09/29. He was throwing a large log into the fire and it bounced back and crushed his middle finger causing a large skin flap type laceration. It was repaired in the emergency room with 16 sutures. There was a comminuted distal phalanx fracture so he was placed on Keflex 4 times daily. He followed up with Dr. Middleton on 10/03 who removed a very small amount of skin from the pad of the finger. Patient states it continues to worsen and today when changing the bandage the entire pad of the finger is black and the dorsal finger is red. It has an odor. He has no fever or chills. He is diabetic. [facility] <NAA Hall - Last Filed: 10/06/24 20:40> [facility] Medical History GERD (gastroesophageal reflux disease) Cigar smoker CKD (chronic kidney disease), stage II EREN on CPAP Wears glasses Depression Restless legs Non-smoker Diabetes type 2, controlled HTN (hypertension) Home Medications ?Medication ?Instructions ?Recorded ?Last Taken ?Type amlodipine 5 mg tablet 5 mg PO DAILY 12/26/22 12/30/22 History cetirizine 10 mg capsule (Zyrtec) 10 mg PO DAILY 12/26/22 Unknown History fluoxetine 20 mg capsule (Prozac) 20 mg PO DAILY 12/26/22 Unknown History losartan 100 1 tab PO DAILY 12/26/22 Unknown History mg-hydrochlorothiazide 25 mg tablet metformin 1,000 mg tablet 1,000 mg PO DAILY 12/26/22 Unknown History multivitamin 1 cap PO DAILY 12/26/22 Unknown History aspirin 325 mg capsule 325 mg PO DAILY #20 caps 12/30/22 Unknown Rx cephalexin 500 mg capsule 500 mg PO Q6 #40 CAPSULES 09/30/24 Unknown Rx hydrocodone-acetaminophen 5-325mg 1 tab PO Q4H PRN PRN Pain 2 days 09/30/24 Unknown Rx 5mg-325mg #10 TABLETS oxycodone 5 mg tablet 5 mg PO Q12H PRN pain 5 days #10 10/03/24 Unknown Rx tabs tirzepatide 5 mg/0.5 mL mg subcut 10/03/24 Unknown History subcutaneous pen injector (Dannyuncorettaro) bupropion HCl 150 mg 24 hr tablet, 150 mg PO DAILY 10/06/24 Unknown History extended release Allergy/AdvReac Type Severity Reaction Status Date / Time Environmental Allergies: Allergy dermatitis Verified 10/06/24 19:15 Uncoded Family History no significant family his Surgical History History of ankle surgery History of esophagogastroduodenoscopy (EGD) Hx of wisdom tooth extraction Social History Smoking Status: Current some day smoker tobacco type: cigars ROS <NAA Hall - Last Filed: 10/06/24 20:40> ROS ED ROS Narrative Constitutional: Negative for fever, chills, malaise. Skin: Positive for wound. Musculoskeletal: Positive for finger pain, swelling. EXAM <NAA Hall - Last Filed: 10/06/24 20:40> Physical Exam Narrative Exam Narrative: CONST: Patient sitting in no acute distress. EYES: Normal inspection. NECK: Normal inspection. RESP: No respiratory distress, CTAB. CVS: Regular rate and rhythm, no murmur, no gallop. EXTREMITIES: Right middle volar distal phalanx over area of prior skin flap is completely black and necrotic. There is circumferential erythema up to the PIP joint. Along the nail folds there is yellow purulence. There is an odor. There is no active drainage. He can bend the MCP and PIP joint but not the DIP joint due to swelling. NEURO: Alert and answering questions appropriately. PSYCH: Normal affect. Const Vital Signs: 10/06/24 19:16 10/06/24 19:18 10/06/24 20:18 Temperature 97.5 F L 97.5 F L 98.6 F Temperature Source Oral Oral Oral Pulse Rate 70 70 63 Respiratory Rate 18 18 18 Blood Pressure 137/80 H 137/80 H 138/78 H Blood Pressure Mean 99 99 98 Pulse Ox 100 100 97 Oxygen Delivery Method Room Air Room Air Room Air <Dr. Hu Chen, DO - Last Filed: 10/06/24 20:52> Physical Exam Const Vital Signs: 10/06/24 19:16 10/06/24 19:18 10/06/24 20:18 Temperature 97.5 F L 97.5 F L 98.6 F Temperature Source Oral Oral Oral Pulse Rate 70 70 63 Respiratory Rate 18 18 18 Blood Pressure 137/80 H 137/80 H 138/78 H Blood Pressure Mean 99 99 98 Pulse Ox 100 100 97 Oxygen Delivery Method Room Air Room Air Room Air [facility] <NAA Hall - Last Filed: 10/06/24 20:40> [facility] Narrative Medical decision making narrative: History gathered from: Patient and his Consults: Plastic surgery, hospitalist Differential: Cellulitis, abscess, osteomyelitis Patient's right middle finger had open fracture of the distal phalanx repaired recently, on Keflex, worsening symptoms now the tip of his finger is necrotic and there is cellular lightest up to the PIP joint. He appears well and nontoxic. Afebrile. Stable vital signs. WBC is 7.5, CRP 14.6, ESR 16. Glucose is 119. X-ray shows the known tuft fracture without any new signs of osteomyelitis. Patient has seen Dr. Middleton in the plastic surgery office for this issue so I consulted him and sent pictures for review. He recommended admission to medicine and IV vancomycin and Zosyn and he will see him in the morning. Lab Data Attestation: I reviewed the patient's lab results. Labs: Laboratory Results - last 24 hr 10/06/24 19:45 WBC 7.5 RBC 5.01 Hgb 15.0 Hct 42.0 MCV 83.8 MCH 29.9 MCHC 35.7 RDW Std Deviation 40.9 RDW Coeff of [place] 13.3 Plt Count 403 MPV 9.9 Immature Gran % (Auto) 0.300 Neut % (Auto) 56.3 Lymph % (Auto) 27.5 [place] % (Auto) 10.8 H Eos % (Auto) 4.4 Baso % (Auto) 0.7 Absolute Neuts (auto) 4.3 Absolute Lymphs (auto) 2.07 Nucleated RBC % 0 ESR 16 Sodium 140 Potassium 3.3 L Chloride 107 Carbon Dioxide 25.0 Anion Gap 8 BUN 18 Creatinine 0.94 Estim Creat Clear Calc 104.83 Est GFR (MDRD) Af Amer 107 Est GFR (MDRD) Non-Af 88 BUN/Creatinine Ratio 19.2 Glucose 119 H Calcium 9.2 C-React Prot Ext Range 14.60 H Radiography Diagnostic Testing: Clinical Impression(s) from Imaging Studies Finger X-Ray 10/06/24 19:46 IMPRESSION: Redemonstration of the acute comminuted fracture of the tuft of the 3rd digit. Mild interval volar displacement of the distal fracture fragment. Progressive soft tissue emphysema surrounding the fracture site. No radiopaque foreign body. No new fracture or dislocation. Reading Location: [facility] ED attending interpretation of right hand shows middle finger comminuted tuft fracture. No other bony abnormalities noted. <Dr. Hu Chen, DO - Last Filed: 10/06/24 20:52> [facility] Lab Data Labs: Laboratory Results - last 24 hr 10/06/24 19:45 WBC 7.5 RBC 5.01 Hgb 15.0 Hct 42.0 MCV 83.8 MCH 29.9 MCHC 35.7 RDW Std Deviation 40.9 RDW Coeff of [place] 13.3 Plt Count 403 MPV 9.9 Immature Gran % (Auto) 0.300 Neut % (Auto) 56.3 Lymph % (Auto) 27.5 [place] % (Auto) 10.8 H Eos % (Auto) 4.4 Baso % (Auto) 0.7 Absolute Neuts (auto) 4.3 Absolute Lymphs (auto) 2.07 Nucleated RBC % 0 ESR 16 Sodium 140 Potassium 3.3 L Chloride 107 Carbon Dioxide 25.0 Anion Gap 8 BUN 18 Creatinine 0.94 Estim Creat Clear Calc 104.83 Est GFR (MDRD) Af Amer 107 Est GFR (MDRD) Non-Af 88 BUN/Creatinine Ratio 19.2 Glucose 119 H Calcium 9.2 C-React Prot Ext Range 14.60 H Radiography Diagnostic Testing: Clinical Impression(s) from Imaging Studies Finger X-Ray 10/06/24 19:46 IMPRESSION: Redemonstration of the acute comminuted fracture of the tuft of the 3rd digit. Mild interval volar displacement of the distal fracture fragment. Progressive soft tissue emphysema surrounding the fracture site. No radiopaque foreign body. No new fracture or dislocation. Reading Location: [facility] Treatment and Re-Evaluation :: I have personally performed a face to face assessment of the patient and have reviewed the OLAYINKA Note. I performed a substantive portion of the visit including all aspects of the following. My desir findings include: History: Patient presents with discoloration of his right middle finger that has been getting worse over the past couple days. Patient was seen in the emergency department for an open tuft fracture of his right middle finger. Patient had a repaired and followed up with Dr. Middleton from plastic surgery. Patient has been on antibiotics since the injury. Patient states that the skin on the volar aspect of his right middle finger is becoming black. Patient states that extending down to the middle phalanx of the right middle finger. Patient noticed increased redness on the dorsal aspect of his right middle finger. Patient denies any fevers or chills. Patient denies any discharge or drainage. Patient denies any paresthesias or weakness. Exam: Vital signs are stable. Patient is afebrile. Patient is in no acute distress. Musculoskeletal exam reveals tenderness over the distal and middle phalanges of the right middle finger. There is erythema on the dorsal aspect. There is black discoloration on the volar aspect of the distal phalanx and the distal portion of the middle phalanx of the right middle finger. There is no active discharge or drainage. There is no fluctuance. Sensation was diminished to light touch on the palmar aspect of the distal phalanx of the right middle finger. Sensation was intact to light touch in the dorsal aspect of the right middle finger. Medical Decision Making: Differential diagnosis includes osteomyelitis, gangrene, wound infection, and tenosynovitis. CBC will be obtained to assess for leukocytosis and anemia. Basic metabolic profile will be obtained to assess for electrolyte abnormality and renal function. CRP and sed rate will be obtained to assess for inflammatory markers. X-rays of the right middle finger will be obtained to assess for osteomyelitis. Patient was started on Zosyn and vancomycin. Case was discussed with Dr. Middleton. He recommended admission to hospitalist service. He will follow the patient in the hospital. CBC was reviewed and was within normal limits. Basic metabolic profile was reviewed. Potassium was slightly low at 3.3. Glucose was slightly elevated at 119. The remainder is within normal limits. C-reactive protein was reviewed and was elevated at 14.6. Sed rate was reviewed and was normal at 16. Case was discussed with the hospitalist. She will admit the patient to her service. Patient and spouse understood and were agreeable with the plan. All questions were answered. Discharge Plan Triage Chief Complaint: Wound Check ED Midlevel Provider: Grazyna Allen ED Provider: Hu Chen Dx/Rx/DC Orders Clinical Impression: Cellulitis of right middle finger, Skin necrosis, History of diabetes mellitus, Failure of outpatient treatment Prescriptions: No Action Mounjaro 5 mg/0.5 mL pen injector subcut Patient Comments: [NO ORIGINAL SIG] oxycodone 5 mg tablet 5 mg PO Q12H PRN (Reason: pain) 5 Days Qty: 10 0RF Rx Instructions: Do not take with the Percocet amlodipine 5 mg Tablet 5 mg PO DAILY losartan-hydrochlorothiazide 100-25 mg Tablet 1 tab PO DAILY metformin 1,000 mg Tablet 1,000 mg PO DAILY multivitamin Capsule 1 cap PO DAILY fluoxetine [Prozac] 20 mg Capsule 20 mg PO DAILY Zyrtec 10 mg Capsule 10 mg PO DAILY aspirin 325 mg capsule 325 mg PO DAILY Qty: 20 0RF hydrocodone-acetaminophen 5-325 mg tablet 1 tab PO Q4H PRN PRN (Reason: Pain) 2 Days Qty: 10 0RF cephalexin 500 mg capsule 500 mg PO Q6 Qty: 40 0RF bupropion HCl 150 mg tablet extended release 24 hr 150 mg PO DAILY Primary Care Provider: Salvador Barnes Referrals: Salvador Barnes DO [Primary Care Provider] - Print Language: Persian
[2024-10-06 20:06] LABS: Anion Gap 8 (5-15); BUN 18 mg/dL (7-18); BUN/Creat Ratio 19.2 RATIO (10-20); Calcium,Total 9.2 mg/dL (8.5-10.1); Chloride 107 mmol/L (98-107); Creatinine, Serum 0.94 mg/dL (0.70-1.30); EST Glomerular Filtration Rate 88 mL/min (>60); Est Glom Filt Rate - Afr Amer 107 mL/min (>60); Estimated Creatinine Clearance 104.83 ml/min; Glucose 119 mg/dL (74-106); Potassium 3.3 mmol/L (3.5-5.1); Sodium Level 140 mmol/L (136-145)
[2024-10-06] MEDS: Piperacil/Tazobactam 3.375 GM in 0.9% Normal Saline (50mL MB+) 50 ML IV (20:14)
[2024-10-06 20:18] VITALS: BP 138/78; PULSE 63; RESP 18; TEMP 37; O2SAT 97
[2024-10-06 20:26] LABS: Erythrocyte Sedimentation Rate 16 mm/hr (0-20)
--- NOTE | 2024-10-06 20:39 | HP.PCM.HOS_ITS ---
HPI - General General Date of Admission: 10/06/24 Date of Service: 10/06/24 Chief Complaint: Worsening wound appearance, necrotic appearance, redness, odor. HPI Narrative The patient is a 59 y/o M w/ PMHx: Occasional cigar smoker, CKD stage II per GFR trending, HTN, HLD, GERD, Anxiety and Depression, RLS, EREN on CPAP, Diabetes mellitus type II who presents to the [facility] ED on 10/06/24 with history of recent 09/30/24 injury to his R middle finger, crushing it between 2 logs with comminuted fracture of the distal phalanx undergoing ED initiated digital block, for material removal and I&D with suturing of the flap down with referral at discharge to plastic surgery with [place] and Keflex regimen with tetanus update given with noted 10/03/[address] with Dr. Middleton with decision for Aquacel Ag twice daily dressings continued splinting with AlumaFoam splint with plan for completion of Keflex regimen who now re-presents to the [facility] ED on 10/06/24 with history of onset today increased color change with the finger distally black and the dorsal finger also red with foul-smelling clear discharge from the wound reported with no fevers or chills and notes that he has been doing the dressing changes but not specifically washed the region. He does note decreased sensation to the necrotic region and some mild paresthesias around the edge of where he has the erythema to the necrotic section. In the ED workup included T97.5, heart 70, BP 137/80, respiratory rate 18, 100% on room air, CBC with WC 7.5, he 1 15, platelet 4 3 without marked shift, BMP with potassium 3.3, glucose 119 otherwise not marked appearing, CRP only mildly elevated 14.60, ESR 16, plain film of the right middle finger with redemonstration of the acute comminuted fracture of the tuft of the third digit, mild interval volar displacement of the distal fracture fragment, progressive soft tissue emphysema surrounding the fracture site with no radiopaque foreign body and no new fracture or dislocation. In the ED patient ministered IV Zosyn and IV vancomycin. ED discussed case with plastic surgeon who reviewed pictures who recommended admission to medicine with continued IV broad-spectrum antibiotic therapy and planned evaluation in AM. [facility] Medical History GERD (gastroesophageal reflux disease) Cigar smoker CKD (chronic kidney disease), stage II EREN on CPAP Wears glasses Depression Restless legs Non-smoker Diabetes type 2, controlled HTN (hypertension) Home Medications ?Medication ?Instructions ?Recorded ?Last Taken ?Type amlodipine 5 mg tablet 5 mg PO DAILY 12/26/2212/30 History cetirizine 10 mg capsule (Zyrtec) 10 mg PO DAILY 12/26 Unknown History fluoxetine 20 mg capsule (Prozac) 20 mg PO DAILY 12/26 Unknown History losartan 100 1 tab PO DAILY 12/26/22 Unkn own History mg-hydrochlorothiazide 25 mg tablet metformin 1,000 mg tablet 1,000 mg PO DAILY 12/26/22 U nknown History multivitamin 1 cap PO DAILY 12/26/22 Unkn own History aspirin 325 mg capsule 325 mg PO DAILY #20 caps Unknown Rx cephalexin 500 mg capsule 500 mg PO Q6 #40 CAPSULES Unknown Rx hydrocodone-acetaminophen 5-325mg 1 tab PO Q4H PRN PRN Pain 2 days 09/30/24 Unknown Rx 5mg-325mg #10 TABLETS oxycodone 5 mg tablet 5 mg PO Q12H PRN pain 5 days #10 10/03/24 Unknown Rx tabs tirzepatide 5 mg/0.5 mL mg subcut 10/03/24 Unknown H istory subcutaneous pen injector (Dannyuncorettaro) bupropion HCl 150 mg 24 hr tablet, 150 mg PO DAILY Unknown History extended release Allergy/AdvReac Type Severity Reaction Status Date / Time Environmental Allergies: Allergy dermatitis Verified 10/06/24 19:15 Uncoded Family History (Updated 10/06/24 @ 21:[address] Danica Bowling MD) Mother Hypertension Father Hypertension Diabetes Seizures Family History no significant family his Surgical History History of ankle surgery History of esophagogastroduodenoscopy (EGD) Hx of wisdom tooth extraction Social History (Updated 10/06/24 @ 21:[address] Danica Bowlnig MD) household members: spouse and children Smoking Status: Current some day smoker tobacco type: cigars per week: 1 alcohol intake: never substance use type: does not use ROS ROS Narrative Admission Review of Systems: CONSTITUTIONAL: No weight loss, fever, chills, weakness or fatigue. HEENT: Eyes: No visual loss, blurred vision, double vision or yellow sclerae. Ears, Nose, Throat: No hearing loss, sneezing, congestion, runny nose or sore throat. SKIN: No rash or itching, lesions, + R middle distal phalanx prior skin flap necrotic with erythema, odor, discharge. CARDIOVASCULAR: No chest pain, chest pressure or chest discomfort, palpitations, edema, orthopnea, syncopal events. RESPIRATORY: No shortness of breath, cough or sputum, wheezing, hemoptysis. GASTROINTESTINAL: No anorexia, nausea, vomiting or diarrhea, abdominal pain, melena, BRBPR. GENITOURINARY: No dysuria, frequency, urgency or retention. NEUROLOGICAL: No headache, dizziness, syncope, paralysis, ataxia, numbness or tingling in the extremities, focal weakness, change in bowel or bladder control, seizure. MUSCULOSKELETAL: + muscle, back pain, joint pain or stiffness. HEMATOLOGIC: No anemia, bleeding or bruising. LYMPHATICS: No enlarged nodes. No history of splenectomy. PSYCHIATRIC: + history of anxiety and depression. ENDOCRINOLOGIC: No reports of sweating, cold or heat intolerance. No polyuria or polydipsia. ALLERGIES: + History allergic rhinitis. Vital Signs Vital Signs Vital Signs: 10/06/24 19:16 10/06/24 19:18 10/06/24 20:18 Temperature 97.5 F L 97.5 F L 98.6 F Temperature Source Oral Oral Oral Pulse Rate 70 70 63 Respiratory Rate 18 18 18 Blood Pressure 137/80 H 137/80 H 138/78 H Blood Pressure Mean 99 99 98 Pulse Ox 100 100 97 Oxygen Delivery Method Room Air Room Air Room Air Weight Weight: 214 lb 8 oz Body Mass Index (BMI) 29.0 Physical Exam Narrative Physical Examination: General: Awake, alert, oriented x 3 and cooperative, seated upright in bed in no apparent distress. Skin: Normal color, normal turgor, no icterus, no cyanosis except R middle distal phalanx prior skin flap necrotic with erythema, odor, discharge. HEENT: AT/NC, EOMI, PERRLA, MMM, no carotid bruits or JVD noted. Lungs: CTA bilaterally, moderate effort, mild decrease BL bases, no rales, ronchi or wheezing. Heart: Regular rate and rhythm; no gallop, rub audible. Abdomen: Soft, overweight, NTTP, ND, normal BS, no HSM. Extremities: No cyanosis, clubbing, or edema. Neurological: Patient awake, alert, oriented x 3, cognitive function intact; pupils equally reactive to light and accommodation, cranial nerves grossly normal, moving all 4 extremities, no focal deficits, strength preserved. Psychiatric: Affect appears normal, no acute evidence of depressive or anxiety feelings but does have underlying history. Results Lab / Micro Data 10/06/24 19:45 10/06/24 19:45 Labs: Laboratory Results - last 24 hr 10/06/24 19:45: WBC 7.5, RBC 5.01, Hgb 15.0, Hct 42.0, MCV 83.8, MCH 29.9, MCHC 35.7, RDW Std Deviation 40.9, RDW Coeff of [place] 13.3, Plt Count 403, MPV 9.9, Immature Gran % (Auto) 0.300, Neut % (Auto) 56.3, Lymph % (Auto) 27.5, [place] % (Auto) 10.8 H, Eos % (Auto) 4.4, Baso % (Auto) 0.7, Absolute Neuts (auto) 4.3, Absolute Lymphs (auto) 2.07, Nucleated RBC % 0, ESR 16, Sodium 140, Potassium 3.3 L, Chloride 107, Carbon Dioxide 25.0, Anion Gap 8, BUN 18, Creatinine 0.94, Estim Creat Clear Calc 104.83, Est GFR (MDRD) Af Amer 107, Est GFR (MDRD) Non-Af 88, BUN/Creatinine Ratio 19.2, Glucose 119 H, Calcium 9.2, C-React Prot Ext Range 14.60 H Imaging Radiology Impression Finger X-Ray 10/06/24 19:46 IMPRESSION: Redemonstration of the acute comminuted fracture of the tuft of the 3rd digit. Mild interval volar displacement of the distal fracture fragment. Progressive soft tissue emphysema surrounding the fracture site. No radiopaque foreign body. No new fracture or dislocation. Reading Location: [facility] Assessment & Plan Assessment/Plan (1) Failure of outpatient treatment: (2) Cellulitis of right middle finger: (3) Skin necrosis: PLAN: Plan The patient is a 59 y/o M w/ PMHx: Occasional cigar smoker, CKD stage II per GFR trending, HTN, HLD, GERD, Anxiety and Depression, RLS, EREN on CPAP, Diabetes mellitus type II who presents to the [facility] ED on 10/06/24 with history of recent 09/30/24 injury to his R middle finger, crushing it between 2 logs with comminuted fracture of the distal phalanx undergoing ED initiated digital block, for material removal and I&D with suturing of the flap down with referral at discharge to plastic surgery with [place] and Keflex regimen with tetanus update given with noted 10/03/24 plastic surgery follow with Dr. Middleton with decision for Aquacel Ag twice daily dressings continued splinting with AlumaFoam splint with plan for completion of Keflex regimen who now re-presents to the [facility] ED on 10/06/24 with history of onset today increased color change with the finger distally black and the dorsal finger also red with foul-smelling clear discharge from the wound reported with no fevers or chills and notes that he has been doing the dressing changes but not specifically washed the region. #1. Recent open fracture of the right middle finger with concern for right middle volar distal phalanx necrotic section as well as circumferential erythema with acute cellulitis, failed outpatient therapy: Will admit to [facility] given stable vital signs, maintain on IV vanc and zosyn, will obtain Wound Cx of discharge as well as Wound MRSA PCR, continue consultation for plastic surgery, plan repeat CBC in AM, continue affected extremity elevation above heart when seated and in bed, monitor erythema outline with VS checks. Wound RN consulted. #2. Hypokalemia: Admission K+ 3.3, magnesium level requested, supplementation given, repeat level in AM. #3. Diabetes mellitus type II: Hold oral regimen, additionally will temporarily hold home Mounjaro regimen, ADA diet, accu checks w/ ISS. HgbA1c requested. #4. Hypertension: Continue home regimen including losartan, hydrochlorothiazide, amlodipine, PRN hydralazine. #5. Hyperlipidemia: Not on regimen, defer to outpatient. #6. Anxiety and depression: We will continue patient on fluoxetine and appropriate regimen. #7. Allergic rhinitis: Will continue patient on Zyrtec regimen. #8. GERD: Per current list on chronic regimen, will have as needed Mylanta. #9. Restless leg syndrome: Per current list not on chronic regimen, may certainly add agent if necessary. #10. Overweight: Weight loss and lifestyle changes encouraged. #11. Chronic Kidney Disease Stage II per GFR trending: Admission BUN/Cr 18/0.94, GFR 88 which appears baseline GFR from prior, baseline renal function 0.9-1.0, repeat BMP in AM. #12. Occasional cigar tobacco use: Encouraged tobacco cessation. #13. EREN: CPAP nightly. #14. DVT prophylaxis: SCDs, hold chemoprophylaxis pending surgery evaluation case of overnights #15. CODE status: Patient LESLYE is his and living will is currently in place. Discussed CODE status at length including difference between FULL code, DNR-CCA and DNR-CC status. Following discussions about the differences in these status, requested Full Code status. Charges/Coding Visit Charges Inpatient E&M: 07015 Init Hosp L3
[2024-10-06 21:00] VITALS: BP 138/78; PULSE 63; RESP 18; TEMP 37; O2SAT 97
--- NOTE | 2024-10-06 21:00 | CASEMGMT ---
Care Management Face to Face with patient for initial transition planning/care coordination assessment in the ED.? This typewriter aligner introduced self and role at [facility]. Patient alert and oriented. Patient willing to participate in assessment and is able to answer all questions appropriately.? Care providers, pharmacy, and demographics verified. Admitting Diagnosis: Cellulitis of right middle finger and skin necrosis. Other diagnosis history: Including but not limited to: DM, CKD, Stage II, EREN, GERD, HTN and Restless legs. PCP: Dr. Salvador Barnes Specialists: Plastic Surgery: Dr. Middleton Preferred Pharmacy: [facility] Insurance: [place] Prescription Benefit: Yes Living Will/HPOA: ?Yes and patient?s , Kindra, is listed as HPOA. ?knockup worker asked patient to have his bring a copy to the hospital for our records. LNOK: Patient?s , Kindra, and their 3 sons and one daughter. Living Arrangements: Patient currently lives at home with his and 3 of their adult children. Patient denied any environmental barriers. Transportation: Patient drives. DME: CPAP machine. HHC: None previously and not needed. SNF/Rehab: Denied Community Resources: Denied Behavioral Health History: Mild depression and suspected ADD, both which are being treated with medication. Patient reported symptoms are currently being effectively managed at this time. Patient goals: Patient wishes to discharge home, and denies need for home health care at this time. Patient denies any further needs or concerns at this time. Disposition Plan: admission to acute; RN CM/SW to follow for discharge planning needs that may arise. Vandana Green, CONTINUOUS DRYOUT OPERATOR HELPER, BENCH WORKER HOLLOW HANDLE
[2024-10-06] MEDS: Vancomycin HCl 2,000 MG in 0.9% Normal Saline (500mL Bag) 500 ML 250 MG IV (21:17)
[2024-10-06 21:18] VITALS: BP 137/79; PULSE 75; RESP 18; TEMP 37; O2SAT 96
[2024-10-06 21:44] VITALS: BP 149/83; PULSE 68; RESP 18; TEMP 36.8; O2SAT 96
[2024-10-06 21:51] VITALS: BMI 28.0
--- NOTE | 2024-10-06 22:28 | PCM.RX.CS ---
Consult Antibiotic Management Pharmacy has been consulted to manage selected antibiotic: Vancomycin Type of Intervention Type of Consult: New start Labs Labs: Sodium 140 mmol/L (136-145) 10/06/24 19:45 Potassium 3.3 mmol/L (3.5-5.1) L 10/06/24 19:45 Chloride 107 mmol/L (98-107) 10/06/24 19:45 Carbon Dioxide 25.0 mmol/L (21.0-32.0) 10/06/24 19:45 Anion Gap 8 (5-15) 10/06/24 19:45 BUN 18 mg/dL (7-18) 10/06/24 19:45 Creatinine 0.94 mg/dL (0.70-1.30) 10/06/24 19:45 Est GFR (MDRD) Af Amer 107 mL/min (>60) 10/06/24 19:45 Est GFR (MDRD) Non-Af 88 mL/min (>60) 10/06/24 19:45 BUN/Creatinine Ratio 19.2 RATIO (10-20) 10/06/24 19:45 Glucose 119 mg/dL (74-106) H 10/06/24 19:45 Dosing Weight Weight used for dosin kg Estimated Creatinine Clearance Estimated Creatinine Clearance: 104.8 Goal Trough Goal Trough: 15-20 mcg/mL Pharmacy Plan for Drug Dosing Pharmacy Plan for Drug Dosing: Pharmacy Service will continue to monitor and adjust dosing as required. ER DOSE 2GM GIVEN 10/06 @ 8517. START 1GM Q8H AND DRAW TROUGH PRIOR TO 4TH DOSE Follow-Up Labs Follow-Up Labs: Trough: Vancomycin Date/Time Labs Ordered Labs to be done on [date and time ordered]: 10/08 @ 8230
[2024-10-06 22:40] VITALS: BMI 28.0
[2024-10-06] MEDS: Potassium Chloride Oral Tablet 20 MEQ 40 MEQ PO (22:41)
--- NOTE | 2024-10-06 22:42 | CPS ---
[2220] Pt. and are in room at this time. I offered to set up pt.'s home CPAP unit, but he insisted that him and his were capable in doing so. I grabbed a gallon a distilled water for pt. to use for his home unit.
[2024-10-06] MEDS: 0.9% Normal Saline (1000mL) 1,000 ML 100 ML IV (22:43)
[2024-10-06 23:10] LABS: Bedside Glucose 104 mg/dL (74-106)
[2024-10-07 01:15] VITALS: BP 153/88; PULSE 62; RESP 16; TEMP 36.8; O2SAT 96
[2024-10-07] MEDS: Acetaminophen 325 MG Tablet 650 MG PO ×2 (01:17→22:21)
[2024-10-07] MEDS: 0.9% Normal Saline (100mL Bag) 100 ML 15 ML IV ×2 (05:21→13:02)
[2024-10-07] MEDS: Piperacil/Tazobactam 3.375 GM in 0.9% Normal Saline (50mL MB+) 50 ML IV ×3 (05:21→22:07)
[2024-10-07] MEDS: Vancomycin IV 1,000 MG/200 ML BAG 200 MG IV ×3 (05:21→22:07)
[2024-10-07 05:26] VITALS: BP 147/82; PULSE 60; RESP 16; TEMP 36.8; O2SAT 97
[2024-10-07 06:56] LABS: Bedside Glucose 125 mg/dL (74-106)
[2024-10-07 07:20] LABS: Absolute Lymphocyte Count 2.03 X10^3/uL (0.83-4.51); Absolute Neutrophil Count 5.2 X10^3/uL (2.0-7.7); Basophil# 0.07 X10^3/uL; Basophil% 0.8 % (0-1); Eosinophil# 0.39 X10^3/uL; Eosinophils% 4.6 % (0-5); Hematocrit 37.6 % (40-54); Hemoglobin 13.1 g/dL (13.0-16.5); Lymphocyte # 2.03 X10^3/ul (0.83-4.51); Lymphocyte % 23.9 % (19-41); Mean Corp Hgb Conc 34.8 g/dL (32-36); Mean Corpuscular Hgb 29.5 pg (27.0-32.0); Mean Corpuscular Volume 84.7 fL (80-94); Mean Platelet Vol. 10.1 fl (6.2-12.0); Monocyte# 0.82 X10^3/uL; Monocyte% 9.6 % (0-10); NRBC Flagged by Analyzer 0 % (0-5); Neutrophil # 5.16 X10^3/uL (2.7-7.7); Neutrophil % 60.6 % (47-70); Platelet Count 346 K/mm3 (150-450); RBC Distribution Width CV 13.2 % (11.6-14.6); RBC Distribution Width SD 40.9 fl (35.1-43.9); Red Blood Count 4.44 M/mm3 (4.6-6.2); White Blood Count 8.5 K/mm3 (4.4-11.0)
[2024-10-07 07:42] LABS: ALB/GLOB Ratio 0.9 RATIO (0.9-2.4); AST(SGOT) 11 U/L (15-37); Alanine Aminotransfer ALT/SGPT 18 U/L (16-61); Albumin, Serum 3.1 g/dL (3.2-5.0); Alkaline Phosphatase 51 U/L (45-117); Anion Gap 8 (5-15); BUN 16 mg/dL (7-18); BUN/Creat Ratio 20.5 RATIO (10-20); Calcium,Total 8.9 mg/dL (8.5-10.1); Chloride 108 mmol/L (98-107); Creatinine, Serum 0.78 mg/dL (0.70-1.30); EST Glomerular Filtration Rate 109 mL/min (>60); Est Glom Filt Rate - Afr Amer 132 mL/min (>60); Estimated Creatinine Clearance 124.38 ml/min; Globulin 3.3 g/dL (2.2-4.2); Glucose 127 mg/dL (74-106); Potassium 3.3 mmol/L (3.5-5.1); Protein, Total 6.4 g/dL (6.4-8.2); Sodium Level 141 mmol/L (136-145)
[2024-10-07 08:03] VITALS: BP 147/86; PULSE 65; RESP 18; TEMP 36.6; O2SAT 96
--- NOTE | 2024-10-07 08:33 | CON.PCM.SX_ITS ---
Assessment & Plan Assessment/Plan (1) Failure of outpatient treatment: PLAN: Patient failed OP management with Keflex (2) Cellulitis of right middle finger: PLAN: Agree with admission for IV antibiotics Betadine paint for now for wound care. Elevation Continue IV antibiotics Plastics to follow I talked to to the patient extensively about debridement and possible options for coverage of the likely bone/soft tissues including dermal substitutes/grafts, as well as reconstructions with local or regional soft tissue coverage/flaps, groin flaps, or even free tissue transfer. We also talked about reconstruction with a revision amputation . We talked about partial amputation with wound care so as to save length. Patient is not interested in multiple surgeries/revisions. He would like one revision amputation. He understands decrease in hand function from shortening of the long finger. He is accepting of the risks of infection, bleeding, poor scaring/contracture, wound healing problems, need for repeat surgeries if there are problems with the first, nerve pain/neuroma. Plan to further let the tissue demarcate and calm down the induration proximally in preparation for revision amputation. HPI Consult Data Date of Consult: 10/07/24 HPI Narrative HPI Narrative: Guero Power is a 59-year-old male with past medical history of type 2 diabetes (A1c of 6.2 in 2022 and reports recent A1c of 6 or so) who presents with a right long finger crush injury from placing logs into a fireplace on 30 Sep 2024. He went to the emergency department that day and was seen and evaluated. Per emergency room physician's note, the nailbed/nail did not appear to have been violated, and the laceration was more on the volar aspect of the fingertip. Therefore nail was kept in place and the finger was washed out with the volar laceration closed with interrupted nylon sutures. An x-ray demonstrated a comminuted distal tuft fracture. The patient's tetanus was updated and he was placed on antibiotics (he has been taking them ever since). On 03 Oct 2024, he followed up with me in my office and had an evolving soft tissue injury to the finger tip with unclear viability of the avulsed/crushed finger tip, but no signs of infection. He was instructed to continue Keflex (from ED), do Aquacel Ag for dressing changes and continue the Alumafoam splint for the tuft fracture stabilization/protection. On 06 Oct 2024, he presented to the emergency department for further demarcation of the tissue and the development of black eschar at the finger tip (dry gangrene) with proximal erythema. He was admitted to medicine for cellulitis work up. Today (07 Oct 2023) on the floor, he has stable VS and WBC is 8.5. Glucose 127. He was placed on broad-spectrum antibiotics (Vancomycin and Zosyn). 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 [facility] Medical History GERD (gastroesophageal reflux disease) Cigar smoker CKD (chronic kidney disease), stage II EREN on CPAP Wears glasses Depression Restless legs Non-smoker Diabetes type 2, controlled HTN (hypertension) Home Medications ?Medication ?Instructions ?Recorded ?Last Taken ?Type cetirizine 10 mg capsule (Zyrtec) 10 mg PO PRN PRN all ergy symptoms 12/26/22 05/14/24 History fluoxetine 20 mg capsule (Prozac) 20 mg PO DAILY depre ssion 12/26/22 10/06/24 12:00 History losartan 100 1 tab PO DAILY hypertension 12/26/22 10/06/24 12:00 History mg-hydrochlorothiazide 25 mg tablet metformin 1,000 mg tablet 1,000 mg PO DAILY diabetes 0 12/26/22 10/06/24 12:00 History cephalexin 500 mg capsule 500 mg PO Q6 #40 CAPSULES 10/06/24 18:00 Rx tirzepatide 5 mg/0.5 mL 5 mg subcut QWEEK diabetes 0 10/03/24 09/30/24 12:00 History subcutaneous pen injector (Mounjaro) bupropion HCl 150 mg 24 hr tablet, 150 mg PO DAILY dep ression 10/06/24 10/06/24 12:00 History extended release amlodipine 10 mg tablet 10 mg PO DAILY BLOOD PRESSUR E 10/07/24 Unknown History Allergy/AdvReac Type Severity Reaction Status Date / Time Environmental Allergies: Allergy dermatitis Verified 10/06/24 19:15 Uncoded Family History Mother Hypertension Father Hypertension Diabetes Seizures Family History no significant family his Surgical History History of ankle surgery History of esophagogastroduodenoscopy (EGD) Hx of wisdom tooth extraction Social History household members: spouse and children Smoking Status: Current some day smoker tobacco type: cigars per week: 1 alcohol intake: never substance use type: does not use Physical Exam Narrative RUE: Inspection: Volar V shaped laceration over the fingertip at and distal to the DIP joint. The finger tip distal to the zone of injury is now demonstrating dry gangrene. No fluid collections, however. Proximal reactive erythema v cellulitis on the finger. No mallet finger and no obvious nailbed laceration. Palpation: No purulent drainage. Exquisite tenderness to palpation. No TTP over A1 derrick or with flexor tendon excursion. No collateral ligament instability at the DIP joint. Motor: Able to bend and extend all MP, PIP, and DIP joints. Sensory: Intact to light touch on the radial and ulnar borders except distal to the zone of injury on the right long finger the fingertip flap is numb. Vascular: Finger tips are warm and well perfused with <2 second capillary refill except for the injured finger. Lab / Micro Data 10/07/24 06:30 10/07/24 06:30 Labs: Laboratory Results - last 24 hr 10/06/24 19:45: WBC 7.5, RBC 5.01, Hgb 15.0, Hct 42.0, MCV 83.8, MCH 29.9, MCHC 35.7, RDW Std Deviation 40.9, RDW Coeff of [place] 13.3, Plt Count 403, MPV 9.9, Immature Gran % (Auto) 0.300, Neut % (Auto) 56.3, Lymph % (Auto) 27.5, [place] % (Auto) 10.8 H, Eos % (Auto) 4.4, Baso % (Auto) 0.7, Absolute Neuts (auto) 4.3, Absolute Lymphs (auto) 2.07, Nucleated RBC % 0, ESR 16, Sodium 140, Potassium 3.3 L, Chloride 107, Carbon Dioxide 25.0, Anion Gap 8, BUN 18, Creatinine 0.94, Estim Creat Clear Calc 104.83, Est GFR (MDRD) Af Amer 107, Est GFR (MDRD) Non-Af 88, BUN/Creatinine Ratio 19.2, Glucose 119 H, Calcium 9.2, Magnesium 2.0, C- React Prot Ext Range 14.60 H 10/06/24 22:47: POC Glucose 104 10/07/24 06:30: WBC 8.5, RBC 4.44 L, Hgb 13.1, Hct 37.6 L, MCV 84.7, MCH 29.5, MCHC 34.8, RDW Std Deviation 40.9, RDW Coeff of [place] 13.2, Plt Count 346, MPV 10.1, Immature Gran % (Auto) 0.500, Neut % (Auto) 60.6, Lymph % (Auto) 23.9, [place] % (Auto) 9.6, Eos % (Auto) 4.6, Baso % (Auto) 0.8, Absolute Neuts (auto) 5.2, Absolute Lymphs (auto) 2.03, Nucleated RBC % 0, Sodium 141, Potassium 3.3 L , Chloride 108 H, Carbon Dioxide 24.0, Anion Gap 8, BUN 16, Creatinine 0.78, Estim Creat Clear Calc 124.38, Est GFR (MDRD) Af Amer 132, Est GFR (MDRD) Non-Af 109, BUN/Creatinine Ratio 20.5 H, Glucose 127 H, Calcium 8.9, Total Bilirubin 0.80, AST 11 L, ALT 18, Alkaline Phosphatase 51, Total Protein 6.4, Albumin 3.1 L, Globulin 3.3, Albumin/Globulin Ratio 0.9 10/07/24 06:37: POC Glucose 125 H Micro: Microbiology 10/06/24 22:55 Wound - Right Hand Skin and Soft Tissue MRSA/MSSA (PCR - Final Imaging Radiology Impression Finger X-Ray 10/06/24 19:46 IMPRESSION: Redemonstration of the acute comminuted fracture of the tuft of the 3rd digit. Mild interval volar displacement of the distal fracture fragment. Progressive soft tissue emphysema surrounding the fracture site. No radiopaque foreign body. No new fracture or dislocation. Reading Location: [facility] independently reviewed the xray Charges/Coding Multi Select Codes Visit Charges Office Visit/Consults: 33679 IP Consult L4
[2024-10-07 08:38] LABS: Hemoglobin A1c 5.6 % (3.8-5.6)
[2024-10-07] MEDS: FLUoxetine 20 MG Capsule PO (10:21)
[2024-10-07] MEDS: amLODIPine 5 MG Tablet PO (10:22)
[2024-10-07] MEDS: Losartan Potassium 100 MG Tablet PO (10:22)
[2024-10-07] MEDS: buPROPion (XL) 150 MG TABLET.XL PO (10:22)
[2024-10-07] MEDS: hydroCHLOROthiazide 25 MG Tablet PO (10:22)
--- NOTE | 2024-10-07 10:42 | WOUNDNOTE ---
wound photo: right long finger
--- NOTE | 2024-10-07 10:43 | WOUNDNOTE ---
wound photo: right long finger
--- NOTE | 2024-10-07 11:06 | PCM.PN.HOSP ---
Subjective Subjective Doing well, no issues overnight Objective Data Objective Data Vital Signs: Vital Signs Temp Pulse Resp BP Pulse Ox O2 Del Method 97.9 F 65 18 147/86 H 96 Room Air 10/07/24 08:03 10/07/24 08:03 10/07/24 08:03 10/07/24 08:03 10/07/24 08:03 10/07/24 08:06 Oxygen Delivery Method Room Air Weight: 207 lb 3.752 oz Body Mass Index (BMI) 28.0 Intake & Output: Intake and Output for Last 24 Hours 10/06/24 10/07/24 10/08/24 03:59 03:59 03:59 Intake Total 840 / 840 1287 / 1287 Balance 840 / 840 1287 / 1287 Lab / Micro Data 10/07/24 06:30 10/07/24 06:30 Labs: Laboratory Results - last 24 hr 10/06/24 19:45: WBC 7.5, RBC 5.01, Hgb 15.0, Hct 42.0, MCV 83.8, MCH 29.9, MCHC 35.7, RDW Std Deviation 40.9, RDW Coeff of [place] 13.3, Plt Count 403, MPV 9.9, Immature Gran % (Auto) 0.300, Neut % (Auto) 56.3, Lymph % (Auto) 27.5, [place] % (Auto) 10.8 H, Eos % (Auto) 4.4, Baso % (Auto) 0.7, Absolute Neuts (auto) 4.3, Absolute Lymphs (auto) 2.07, Nucleated RBC % 0, ESR 16, Sodium 140, Potassium 3.3 L, Chloride 107, Carbon Dioxide 25.0, Anion Gap 8, BUN 18, Creatinine 0.94, Estim Creat Clear Calc 104.83, Est GFR (MDRD) Af Amer 107, Est GFR (MDRD) Non-Af 88, BUN/Creatinine Ratio 19.2, Glucose 119 H, Calcium 9.2, Magnesium 2.0, C-React Prot Ext Range 14.60 H 10/06/24 22:47: POC Glucose 104 10/07/24 06:30: WBC 8.5, RBC 4.44 L, Hgb 13.1, Hct 37.6 L, MCV 84.7, MCH 29.5, MCHC 34.8, RDW Std Deviation 40.9, RDW Coeff of [place] 13.2, Plt Count 346, MPV 10.1, Immature Gran % (Auto) 0.500, Neut % (Auto) 60.6, Lymph % (Auto) 23.9, [place] % (Auto) 9.6, Eos % (Auto) 4.6, Baso % (Auto) 0.8, Absolute Neuts (auto) 5.2, Absolute Lymphs (auto) 2.03, Nucleated RBC % 0, Sodium 141, Potassium 3.3 L, Chloride 108 H, Carbon Dioxide 24.0, Anion Gap 8, BUN 16, Creatinine 0.78, Estim Creat Clear Calc 124.38, Est GFR (MDRD) Af Amer 132, Est GFR (MDRD) Non-Af 109, BUN/Creatinine Ratio 20.5 H, Glucose 127 H, Hemoglobin A1c 5.6, Calcium 8.9, Total Bilirubin 0.80, AST 11 L, ALT 18, Alkaline Phosphatase 51, Total Protein 6.4, Albumin 3.1 L, Globulin 3.3, Albumin/Globulin Ratio 0.9 10/07/24 06:37: POC Glucose 125 H Micro: Microbiology 10/06/24 22:55 Wound - Right Hand Skin and Soft Tissue MRSA/MSSA (PCR - Final Radiography Diagnostic Testing: Radiology Impression Finger X-Ray 10/06/24 19:46 IMPRESSION: Redemonstration of the acute comminuted fracture of the tuft of the 3rd digit. Mild interval volar displacement of the distal fracture fragment. Progressive soft tissue emphysema surrounding the fracture site. No radiopaque foreign body. No new fracture or dislocation. Reading Location: [facility] Physical Exam Narrative General: Alert, Oriented x3, Cooperative, No apparent distress HEENT: Atraumatic, PERRLA, EOMI, Normocephalic Oral: Moist Mucosa Neck: Supple, No JVD Lungs: Clear to auscultation, Normal air movement, No rhonchi, No wheeze, No rales Cardiovascular: Regular rate, Regular Rhythm, Normal S1, Normal S2, No murmurs Abdomen: Soft, Non Tender, Non-Distended, No Hepato-splenomegaly Extremities: No edema, Capillary Refill Less than 3 Seconds Skin: Discoloration of the distal phalanx of the right middle finger with necrotic skin flap and erythema Musculoskeletal: No Tenderness to Palpation of Joints or Extremities Neurological: No focal neurological deficits, Motor Exam 5/5 strength throughout, Sensory exam intact to light touch and pain Psych/Mental Status: Normal Affect, Appropriate Assessment & Plan Assessment/Plan (1) Failure of outpatient treatment: (2) Cellulitis of right middle finger: (3) Skin necrosis: PLAN: Plan #1. Recent open fracture of the right middle finger with concern for right middle volar distal phalanx necrotic section as well as circumferential erythema with acute cellulitis, failed outpatient therapy: Will admit to MS given stable vital signs, maintain on IV vanc and zosyn, will obtain Wound Cx of discharge as well as Wound MRSA PCR, continue consultation for plastic surgery, plan repeat CBC in AM, continue affected extremity elevation above heart when seated and in bed, monitor erythema outline with VS checks. Wound RN consulted. 10/07/2024: Appreciate plastic surgery's assistance in management. Continue with antibiotics #2. Diabetes mellitus type II: Hold oral regimen, additionally will temporarily hold home Mounjaro regimen, ADA diet, accu checks w/ ISS. HgbA1c requested. #3. Hypertension: Continue home regimen including losartan, hydrochlorothiazide, amlodipine, PRN hydralazine. #4. Hyperlipidemia: Not on regimen, defer to outpatient. #5. Anxiety and depression: We will continue patient on fluoxetine and appropriate regimen. #6. GERD: Per current list on chronic regimen, will have as needed Mylanta. #7. Restless leg syndrome: Per current list not on chronic regimen, may certainly add agent if necessary. DVT: SCDs Charges/Coding Visit Charges Inpatient E&M: 01091 Subs Hosp L2
[2024-10-07 11:26] LABS: Bedside Glucose 132 mg/dL (74-106)
[2024-10-07 14:28] VITALS: BP 140/85; PULSE 66; RESP 18; TEMP 36.8; O2SAT 97
[2024-10-07 17:01] LABS: Bedside Glucose 113 mg/dL (74-106)
[2024-10-07] MEDS: Insulin Lispro 100 UNIT/ML INSULN.PEN SC (22:12)
[2024-10-07 22:29] VITALS: BP 155/81; PULSE 64; RESP 16; TEMP 37; O2SAT 96
[2024-10-08 00:52] LABS: Bedside Glucose 160 mg/dL (74-106)
[2024-10-08 05:17] LABS: Absolute Lymphocyte Count 2.15 X10^3/uL (0.83-4.51); Absolute Neutrophil Count 4.4 X10^3/uL (2.0-7.7); Basophil# 0.06 X10^3/uL; Basophil% 0.8 % (0-1); Eosinophil# 0.43 X10^3/uL; Eosinophils% 5.6 % (0-5); Hematocrit 37.3 % (40-54); Hemoglobin 13.1 g/dL (13.0-16.5); Lymphocyte # 2.15 X10^3/ul (0.83-4.51); Mean Corp Hgb Conc 35.1 g/dL (32-36); Mean Corpuscular Hgb 29.6 pg (27.0-32.0); Mean Corpuscular Volume 84.4 fL (80-94); Mean Platelet Vol. 9.6 fl (6.2-12.0); Monocyte# 0.67 X10^3/uL; Monocyte% 8.7 % (0-10); NRBC Flagged by Analyzer 0 % (0-5); Neutrophil # 4.35 X10^3/uL (2.7-7.7); Neutrophil % 56.5 % (47-70); Platelet Count 353 K/mm3 (150-450); RBC Distribution Width SD 39.9 fl (35.1-43.9); Red Blood Count 4.42 M/mm3 (4.6-6.2); White Blood Count 7.7 K/mm3 (4.4-11.0)
[2024-10-08 05:31] LABS: Anion Gap 8 (5-15); BUN 15 mg/dL (7-18); BUN/Creat Ratio 20.6 RATIO (10-20); Calcium,Total 9.2 mg/dL (8.5-10.1); Chloride 108 mmol/L (98-107); Creatinine, Serum 0.73 mg/dL (0.70-1.30); EST Glomerular Filtration Rate 118 mL/min (>60); Est Glom Filt Rate - Afr Amer 143 mL/min (>60); Glucose 110 mg/dL (74-106); Potassium 3.3 mmol/L (3.5-5.1); Sodium Level 141 mmol/L (136-145)
[2024-10-08 05:36] LABS: Vancomycin, Trough Level 14.5 ug/mL (5.0-15.0)
--- NOTE | 2024-10-08 05:44 | PCM.RX.CS ---
Consult Antibiotic Management Pharmacy has been consulted to manage selected antibiotic: Vancomycin Type of Intervention Type of Consult: Follow-up Labs Labs: Sodium 141 mmol/L (136-145) 10/08/24 05:05 Potassium 3.3 mmol/L (3.5-5.1) L 10/08/24 05:05 Chloride 108 mmol/L (98-107) H 10/08/24 05:05 Carbon Dioxide 26.0 mmol/L (21.0-32.0) 10/08/24 05:05 Anion Gap 8 (5-15) 10/08/24 05:05 BUN 15 mg/dL (7-18) 10/08/24 05:05 Creatinine 0.73 mg/dL (0.70-1.30) 10/08/24 05:05 Est GFR (MDRD) Af Amer 143 mL/min (>60) 10/08/24 05:05 Est GFR (MDRD) Non-Af 118 mL/min (>60) 10/08/24 05:05 BUN/Creatinine Ratio 20.6 RATIO (10-20) H 10/08/24 05:05 Glucose 110 mg/dL (74-106) H 10/08/24 05:05 Vancomycin Trough 14.5 ug/mL (5.0-15.0) 10/08/24 05:05 Microbiology Microbiology: Microbiology 10/06/24 22:55 Wound - Finger Gram Stain - Final 10/06/24 22:55 Wound - Right Hand Skin and Soft Tissue MRSA/MSSA (PCR - Final Goal Trough Goal Trough: 15-20 mcg/mL Pharmacy Plan for Drug Dosing Pharmacy Plan for Drug Dosing: Pharmacy Service will continue to monitor and adjust dosing as required. TROUGH 14.5 @ 7 HOURS. NO CHNAGES, FOLLOW UP TROUGH TOMORROW PER CURRENT TROUGH Follow-Up Labs Follow-Up Labs: Trough: Vancomycin Date/Time Labs Ordered Labs to be done on [date and time ordered]: 10/09 @ 0500
[2024-10-08] MEDS: Vancomycin IV 1,000 MG/200 ML BAG 200 MG IV ×3 (05:48→21:46)
[2024-10-08 06:00] VITALS: BMI 29.0
[2024-10-08 06:02] VITALS: BP 145/78; PULSE 88; RESP 16; TEMP 37; O2SAT 93
[2024-10-08] MEDS: Piperacil/Tazobactam 3.375 GM in 0.9% Normal Saline (50mL MB+) 50 ML IV ×2 (06:06→14:17)
--- NOTE | 2024-10-08 06:59 | PCM.PN.SRG ---
Subjective Subjective Doing well. No subjective fevers/chills. Pain controlled. Compliant with rest and elevation Objective Data Objective Data Vital Signs: Vital Signs Temp Pulse Resp BP Pulse Ox O2 Del Method 98.6 F 88 16 145/78 H 93 Room Air 10/08/24 06:02 10/08/24 06:02 10/08/24 06:02 10/08/24 06:02 10/08/24 06:02 10/08/24 06:02 Oxygen Delivery Method Room Air Weight: 214 lb 1.102 oz Body Mass Index (BMI) 29.0 Intake & Output: Intake and Output for Last 24 Hours 10/06/24 10/07/24 10/08/24 23:59 23:59 23:59 Intake Total 840 / 840 1782.75 / 1782.75 749.75 / 749.75 Balance 840 / 840 1782.75 / 1782.75 749.75 / 749.75 Lab / Micro Data 10/08/24 05:05 10/08/24 05:05 Labs: Laboratory Results - last 24 hr 10/07/24 06:30: WBC 8.5, RBC 4.44 L, Hgb 13.1, Hct 37.6 L, MCV 84.7, MCH 29.5, MCHC 34.8, RDW Std Deviation 40.9, RDW Coeff of [place] 13.2, Plt Count 346, MPV 10.1, Immature Gran % (Auto) 0.500, Neut % (Auto) 60.6, Lymph % (Auto) 23.9, [place] % (Auto) 9.6, Eos % (Auto) 4.6, Baso % (Auto) 0.8, Absolute Neuts (auto) 5.2, Absolute Lymphs (auto) 2.03, Nucleated RBC % 0, Sodium 141, Potassium 3.3 L, Chloride 108 H, Carbon Dioxide 24.0, Anion Gap 8, BUN 16, Creatinine 0.78, Estim Creat Clear Calc 124.38, Est GFR (MDRD) Af Amer 132, Est GFR (MDRD) Non-Af 109, BUN/Creatinine Ratio 20.5 H, Glucose 127 H, Hemoglobin A1c 5.6, Calcium 8.9, Total Bilirubin 0.80, AST 11 L, ALT 18, Alkaline Phosphatase 51, Total Protein 6.4, Albumin 3.1 L, Globulin 3.3, Albumin/Globulin Ratio 0.9 10/07/24 10:43: POC Glucose 132 H 10/07/24 16:36: POC Glucose 113 H 10/07/24 22:09: POC Glucose 160 H 10/08/24 05:05: WBC 7.7, RBC 4.42 L, Hgb 13.1, Hct 37.3 L, MCV 84.4, MCH 29.6, MCHC 35.1, RDW Std Deviation 39.9, RDW Coeff of [place] 13.0, Plt Count 353, MPV 9.6, Immature Gran % (Auto) 0.400, Neut % (Auto) 56.5, Lymph % (Auto) 28.0, [place] % (Auto) 8.7, Eos % (Auto) 5.6 H, Baso % (Auto) 0.8, Absolute Neuts (auto) 4.4, Absolute Lymphs (auto) 2.15, Nucleated RBC % 0, Sodium 141, Potassium 3.3 L, Chloride 108 H, Carbon Dioxide 26.0, Anion Gap 8, BUN 15, Creatinine 0.73, Estim Creat Clear Calc 132.90, Est GFR (MDRD) Af Amer 143, Est GFR (MDRD) Non-Af 118, BUN/Creatinine Ratio 20.6 H, Glucose 110 H, Calcium 9.2, Vancomycin Trough 14.5 Micro: Microbiology 10/06/24 22:55 Wound - Finger Gram Stain - Final 10/06/24 22:55 Wound - Right Hand Skin and Soft Tissue MRSA/MSSA (PCR - Final Physical Exam Narrative RUE: Inspection: Volar V shaped laceration over the fingertip at and distal to the DIP joint. The finger tip distal to the zone of injury is now demonstrating dry gangrene. No fluid collections, however. Proximal reactive erythema v cellulitis on the finger. No mallet finger and no obvious nailbed laceration. Palpation: No purulent drainage. Some tenderness to palpation, but improved. No TTP over A1 derrick or with flexor tendon excursion. No collateral ligament instability at the DIP joint. Motor: Able to bend and extend all MP, PIP, and DIP joints. Sensory: Intact to light touch on the radial and ulnar borders except distal to the zone of injury on the right long finger the fingertip flap is numb. Vascular: Finger tips are warm and well perfused with <2 second capillary refill except for the injured finger. Assessment & Plan Assessment/Plan (1) Failure of outpatient treatment: PLAN: Patient failed OP management with Keflex (2) Cellulitis of right middle finger: PLAN: Agree with admission for IV antibiotics Betadine paint for now for wound care. Elevation Continue IV antibiotics Plastics to follow I talked to to the patient extensively about debridement and possible options for coverage of the likely bone/soft tissues including dermal substitutes/grafts, as well as reconstructions with local or regional soft tissue coverage/flaps, groin flaps, or even free tissue transfer. We also talked about reconstruction with a revision amputation . We talked about partial amputation with wound care so as to save length. Patient is not interested in multiple surgeries/revisions. He would like one revision amputation. He understands decrease in hand function from shortening of the long finger. He is accepting of the risks of infection, bleeding, poor scaring/contracture, wound healing problems, need for repeat surgeries if there are problems with the first, nerve pain/neuroma. Plan to further let the tissue demarcate and calm down the induration proximally in preparation for revision amputation. Tentative plan for , 10 Oct 2024. Charges/Coding Visit Charges Inpatient E&M: 16453 Subs Hosp L1
[2024-10-08 07:16] LABS: Bedside Glucose 110 mg/dL (74-106)
[2024-10-08 08:39] VITALS: BP 139/80; PULSE 65; RESP 16; TEMP 36.9; O2SAT 95
[2024-10-08] MEDS: amLODIPine 5 MG Tablet PO (08:46)
[2024-10-08] MEDS: hydroCHLOROthiazide 25 MG Tablet PO (08:47)
[2024-10-08] MEDS: Losartan Potassium 100 MG Tablet PO (08:47)
[2024-10-08] MEDS: buPROPion (XL) 150 MG TABLET.XL PO (08:47)
[2024-10-08] MEDS: FLUoxetine 20 MG Capsule PO (08:47)
--- NOTE | 2024-10-08 09:28 | WOUNDNOTE ---
Dr Middleton had been in this am to reassess the right long finger. plan is tentative surgery on once the edema and erythema improve. will continue to monitor.
[2024-10-08 11:29] LABS: Bedside Glucose 140 mg/dL (74-106)
--- NOTE | 2024-10-08 12:04 | PN.HOSP_ITS ---
Subjective Subjective Doing well, no issues overnight. Pain is controlled Objective Data Objective Data Vital Signs: Vital Signs Temp Pulse Resp BP Pulse Ox O2 Del Method 98.4 F 65 16 139/80 H 95 Room Air 10/08/24 08:39 10/08/24 08:39 10/08/24 08:39 10/08/24 08:39 10/08/24 08:39 10/08/24 10:53 Oxygen Delivery Method Room Air Weight: 214 lb 1.102 oz Body Mass Index (BMI) 29.0 Intake & Output: Intake and Output for Last 24 Hours 10/07/24 10/08/24 10/09/24 03:59 03:59 03:59 Intake Total 840 / 840 1932.50 / 1932.50 650 / 650 Balance 840 / 840 1932.50 / 1932.50 650 / 650 Lab / Micro Data 10/08/24 05:05 10/08/24 05:05 Labs: Laboratory Results - last 24 hr 10/07/24 16:36: POC Glucose 113 H 10/07/24 22:09: POC Glucose 160 H 10/08/24 05:05: WBC 7.7, RBC 4.42 L, Hgb 13.1, Hct 37.3 L, MCV 84.4, MCH 29.6, MCHC 35.1, RDW Std Deviation 39.9, RDW Coeff of [place] 13.0, Plt Count 353, MPV 9.6, Immature Gran % (Auto) 0.400, Neut % (Auto) 56.5, Lymph % (Auto) 28.0, [place] % (Auto) 8.7, Eos % (Auto) 5.6 H, Baso % (Auto) 0.8, Absolute Neuts (auto) 4.4, Absolute Lymphs (auto) 2.15, Nucleated RBC % 0, Sodium 141, Potassium 3.3 L, C hloride 108 H, Carbon Dioxide 26.0, Anion Gap 8, BUN 15, Creatinine 0.73, Estim Creat Clear Calc 132.90, Est GFR (MDRD) Af Amer 143, Est GFR (MDRD) Non-Af 118, BUN/Creatinine Ratio 20.6 H, Glucose 110 H, Calcium 9.2, Vancomycin Trough 14.5 10/08/24 05:58: POC Glucose 110 H 10/08/24 11:11: POC Glucose 140 H Micro: Microbiology 10/06/24 22:55 Wound - Finger Gram Stain - Final 10/06/24 22:55 Wound - Finger Wound Culture - Preliminary 10/06/24 22:55 Wound - Right Hand Skin and Soft Tissue MRSA/MSSA (PCR - Final Physical Exam Narrative General: Alert, Oriented x3, Cooperative, No apparent distress HEENT: Atraumatic, PERRLA, EOMI, Normocephalic Oral: Moist Mucosa Neck: Supple, No JVD Lungs: Clear to auscultation, Normal air movement, No rhonchi, No wheeze, No rales Cardiovascular: Regular rate, Regular Rhythm, Normal S1, Normal S2, No murmurs Abdomen: Soft, Non Tender, Non-Distended, No Hepato-splenomegaly Extremities: No edema, Capillary Refill Less than 3 Seconds Skin: Discoloration of the distal phalanx of the right middle finger with necrotic skin flap and erythema, dressing intact Musculoskeletal: No Tenderness to Palpation of Joints or Extremities Neurological: No focal neurological deficits, Motor Exam 5/5 strength throughout, Sensory exam intact to light touch and pain Psych/Mental Status: Normal Affect, Appropriate Assessment & Plan Assessment/Plan (1) Failure of outpatient treatment: (2) Cellulitis of right middle finger: (3) Skin necrosis: PLAN: Plan #1. Recent open fracture of the right middle finger with concern for right middle volar distal phalanx necrotic section as well as circumferential erythema with acute cellulitis, failed outpatient therapy: Will admit to [facility] given stable vital signs, maintain on IV vanc and zosyn, will obtain Wound Cx of discharge as well as Wound MRSA PCR, continue consultation for plastic surgery, plan repeat CBC in AM, continue affected extremity elevation above heart when seated and in bed, monitor erythema outline with VS checks. Wound RN consulted. 10/07/2024: Appreciate plastic surgery's assistance in management. Continue with antibiotics 10/08/2024: Plan for possible surgical intervention on #2. Diabetes mellitus type II: Hold oral regimen, additionally will temporarily hold home Mounjaro regimen, ADA diet, accu checks w/ ISS. HgbA1c requested. 10/08/2024: A1c of 5.6 #3. Hypertension: Continue home regimen including losartan, hydrochlorothiazide, amlodipine, PRN hydralazine. #4. Hyperlipidemia: Not on regimen, defer to outpatient. #5. Anxiety and depression: We will continue patient on fluoxetine and appropriate regimen. #6. GERD: Per current list on chronic regimen, will have as needed Mylanta. #7. Restless leg syndrome: Per current list not on chronic regimen, may certainly add agent if necessary. DVT: SCDs Charges/Coding Visit Charges Inpatient E&M: 45564 Subs Hosp L2
[2024-10-08] MEDS: 0.9% Saline Lock 10 ML Syringe IV ×2 (14:11→21:46)
[2024-10-08 14:24] VITALS: BP 143/85; PULSE 63; RESP 16; TEMP 36.6; O2SAT 95
[2024-10-08 17:01] LABS: Bedside Glucose 119 mg/dL (74-106)
[2024-10-08] MEDS: Acetaminophen 325 MG Tablet 650 MG PO (21:49)
[2024-10-08 21:52] VITALS: BP 141/85; PULSE 60; RESP 16; TEMP 36.8; O2SAT 97
[2024-10-08 23:46] LABS: Bedside Glucose 150 mg/dL (74-106)
[2024-10-09 00:05] VITALS: BP 145/81; PULSE 59; RESP 18; TEMP 36.8; O2SAT 96
[2024-10-09 05:24] VITALS: BMI 29.6
[2024-10-09 05:29] VITALS: BP 133/86; PULSE 61; RESP 16; TEMP 36.7; O2SAT 95
--- NOTE | 2024-10-09 05:39 | PCM.RX.CS ---
Consult Antibiotic Management Pharmacy has been consulted to manage selected antibiotic: Vancomycin Type of Intervention Type of Consult: Follow-up Labs Labs: Sodium 141 mmol/L (136-145) 10/08/24 05:05 Potassium 3.3 mmol/L (3.5-5.1) L 10/08/24 05:05 Chloride 108 mmol/L (98-107) H 10/08/24 05:05 Carbon Dioxide 26.0 mmol/L (21.0-32.0) 10/08/24 05:05 Anion Gap 8 (5-15) 10/08/24 05:05 BUN 15 mg/dL (7-18) 10/08/24 05:05 Creatinine 0.73 mg/dL (0.70-1.30) 10/08/24 05:05 Est GFR (MDRD) Af Amer 143 mL/min (>60) 10/08/24 05:05 Est GFR (MDRD) Non-Af 118 mL/min (>60) 10/08/24 05:05 BUN/Creatinine Ratio 20.6 RATIO (10-20) H 10/08/24 05:05 Glucose 110 mg/dL (74-106) H 10/08/24 05:05 Vancomycin Trough 15.0 ug/mL (5.0-15.0) 10/09/24 04:45 Microbiology Microbiology: Microbiology 10/06/24 22:55 Wound - Finger Gram Stain - Final 10/06/24 22:55 Wound - Finger Wound Culture - Preliminary 10/06/24 22:55 Wound - Right Hand Skin and Soft Tissue MRSA/MSSA (PCR - Final Goal Trough Goal Trough: 15-20 mcg/mL Pharmacy Plan for Drug Dosing Pharmacy Plan for Drug Dosing: Pharmacy Service will continue to monitor and adjust dosing as required. TROUGH 15 @ 7 HOURS. NO CHANGES, FOLLOW UP TROUGH IN 2 DAYS Follow-Up Labs Follow-Up Labs: Trough: Vancomycin Date/Time Labs Ordered Labs to be done on [date and time ordered]: 10/11 @ 0500
[2024-10-09] MEDS: Vancomycin IV 1,000 MG/200 ML BAG 200 MG IV ×3 (05:47→20:43)
[2024-10-09] MEDS: 0.9% Normal Saline (100mL Bag) 100 ML 15 ML IV (05:50)
[2024-10-09] MEDS: Piperacil/Tazobactam 3.375 GM in 0.9% Normal Saline (50mL MB+) 50 ML IV ×4 (07:00→22:17)
[2024-10-09 07:22] LABS: Bedside Glucose 150 mg/dL (74-106)
--- NOTE | 2024-10-09 08:02 | PCM.PN.SRG ---
Subjective Subjective Doing well overall. Reports less tenderness, less swelling. Compliant with rest and elevation. Objective Data Objective Data Vital Signs: Vital Signs Temp Pulse Resp BP Pulse Ox O2 Del Method 98.1 F 61 16 133/86 H 95 CPAP 10/09/24 05:29 10/09/24 05:29 10/09/24 05:29 10/09/24 05:29 10/09/24 05:29 10/09/24 05:38 Oxygen Delivery Method CPAP Weight: 218 lb 11.177 oz Body Mass Index (BMI) 29.6 Intake & Output: Intake and Output for Last 24 Hours 10/07/24 10/08/24 10/09/24 23:59 23:59 23:59 Intake Total 1782.75 / 1782.75 1249.75 / 1349.75 350 / 350 Balance 1782.75 / 1782.75 1249.75 / 1349.75 350 / 350 Lab / Micro Data 10/08/24 05:05 10/08/24 05:05 Labs: Laboratory Results - last 24 hr 10/08/24 11:11: POC Glucose 140 H 10/08/24 16:17: POC Glucose 119 H 10/08/24 22:12: POC Glucose 150 H 10/09/24 04:45: Vancomycin Trough 15.0 10/09/24 06:58: POC Glucose 150 H Micro: Microbiology 10/06/24 22:55 Wound - Finger Gram Stain - Final 10/06/24 22:55 Wound - Finger Wound Culture - Preliminary 10/06/24 22:55 Wound - Right Hand Skin and Soft Tissue MRSA/MSSA (PCR - Final Physical Exam Narrative RUE: Inspection: Volar V shaped laceration over the fingertip at and distal to the DIP joint. The finger tip distal to the zone of injury is now demonstrating dry gangrene. No fluid collections. Proximal reactive erythema v cellulitis on the finger is improving (skin healthier and less indurated). No mallet finger and no obvious nailbed laceration. Palpation: No purulent drainage. Some tenderness to palpation, but much improved. No TTP over A1 derrick or with flexor tendon excursion. No collateral ligament instability at the DIP joint. Motor: Able to bend and extend all MP, PIP, and DIP joints. Sensory: Intact to light touch on the radial and ulnar borders except distal to the zone of injury on the right long finger the fingertip flap is numb. Vascular: Finger tips are warm and well perfused with <2 second capillary refill except for the injured finger. Assessment & Plan Assessment/Plan (1) Failure of outpatient treatment: PLAN: Patient failed OP management with Keflex (2) Cellulitis of right middle finger: PLAN: Agree with admission for IV antibiotics Betadine paint for now for wound care. Elevation Continue IV antibiotics Plastics to follow I talked to to the patient extensively about debridement and possible options for coverage of the likely bone/soft tissues including dermal substitutes/grafts, as well as reconstructions with local or regional soft tissue coverage/flaps, groin flaps, or even free tissue transfer. We also talked about reconstruction with a revision amputation . We talked about partial amputation with wound care so as to save length. Patient is not interested in multiple surgeries/revisions. He would like one revision amputation. He understands decrease in hand function from shortening of the long finger. He is accepting of the risks of infection, bleeding, poor scaring/contracture, wound healing problems, need for repeat surgeries if there are problems with the first, nerve pain/neuroma. Discussed risks of bleeding, infection, need for further surgeries/wound care, further need for shortening of the finger (another revision amputation), as well as nerve pain/neuromas. Plan to further let the tissue demarcate and calm down the induration proximally in preparation for revision amputation. Tentative plan for , 10 Oct 2024. NPO at midnight Charges/Coding Visit Charges Inpatient E&M: 40441 Subs Hosp L1
[2024-10-09 08:12] VITALS: BP 145/94; PULSE 60; RESP 16; TEMP 36.6; O2SAT 96
[2024-10-09] MEDS: buPROPion (XL) 150 MG TABLET.XL PO (09:56)
[2024-10-09] MEDS: FLUoxetine 20 MG Capsule PO (09:56)
[2024-10-09] MEDS: Losartan Potassium 100 MG Tablet PO (09:56)
[2024-10-09] MEDS: hydroCHLOROthiazide 25 MG Tablet PO (09:56)
[2024-10-09] MEDS: amLODIPine 5 MG Tablet PO (09:56)
--- NOTE | 2024-10-09 10:25 | WOUNDNOTE ---
Had been in this am to assess the right middle finger with Dr Middleton. plan for OR tomorrow. betadine paint applied and covered with dry dressings. wrapped with joann. pt tolerated well.
--- NOTE | 2024-10-09 10:37 | PCM.PN.HOSP ---
Subjective Subjective Doing well, pain is controlled Objective Data Objective Data Vital Signs: Vital Signs Temp Pulse Resp BP Pulse Ox O2 Del Method 97.9 F 60 16 145/94 H 96 Room Air 10/09/24 08:12 10/09/24 08:12 10/09/24 08:12 10/09/24 08:12 10/09/24 08:12 10/09/24 08:12 Oxygen Delivery Method Room Air Weight: 218 lb 11.177 oz Body Mass Index (BMI) 29.6 Intake & Output: Intake and Output for Last 24 Hours 10/08/24 10/09/24 10/10/24 03:59 03:59 03:59 Intake Total 1932.50 / 1932.50 1200 / 1250 250 / 250 Balance 1932.50 / 1932.50 1200 / 1250 250 / 250 Lab / Micro Data 10/08/24 05:05 10/08/24 05:05 Labs: Laboratory Results - last 24 hr 10/08/24 11:11: POC Glucose 140 H 10/08/24 16:17: POC Glucose 119 H 10/08/24 22:12: POC Glucose 150 H 10/09/24 04:45: Vancomycin Trough 15.0 10/09/24 06:58: POC Glucose 150 H Micro: Microbiology 10/06/24 22:55 Wound - Finger Gram Stain - Final 10/06/24 22:55 Wound - Finger Wound Culture - Preliminary Staphylococcus aureus 10/06/24 22:55 Wound - Right Hand Skin and Soft Tissue MRSA/MSSA (PCR - Final Physical Exam Narrative General: Alert, Oriented x3, Cooperative, No apparent distress HEENT: Atraumatic, PERRLA, EOMI, Normocephalic Oral: Moist Mucosa Neck: Supple, No JVD Lungs: Clear to auscultation, Normal air movement, No rhonchi, No wheeze, No rales Cardiovascular: Regular rate, Regular Rhythm, Normal S1, Normal S2, No murmurs Abdomen: Soft, Non Tender, Non-Distended, No Hepato-splenomegaly Extremities: No edema, Capillary Refill Less than 3 Seconds Skin: Discoloration of the distal phalanx of the right middle finger with necrotic skin flap and erythema, dressing intact Musculoskeletal: No Tenderness to Palpation of Joints or Extremities Neurological: No focal neurological deficits, Motor Exam 5/5 strength throughout, Sensory exam intact to light touch and pain Psych/Mental Status: Normal Affect, Appropriate Assessment & Plan Assessment/Plan (1) Failure of outpatient treatment: (2) Cellulitis of right middle finger: (3) Skin necrosis: PLAN: Plan #1. Recent open fracture of the right middle finger with concern for right middle volar distal phalanx necrotic section as well as circumferential erythema with acute cellulitis, failed outpatient therapy: Will admit to MS given stable vital signs, maintain on IV vanc and zosyn, will obtain Wound Cx of discharge as well as Wound MRSA PCR, continue consultation for plastic surgery, plan repeat CBC in AM, continue affected extremity elevation above heart when seated and in bed, monitor erythema outline with VS checks. Wound RN consulted. 10/07/2024: Appreciate plastic surgery's assistance in management. Continue with antibiotics 10/08/2024: Plan for possible surgical intervention on 10/09/2024: Plan for surgery tomorrow #2. Diabetes mellitus type II: Hold oral regimen, additionally will temporarily hold home Mounjaro regimen, ADA diet, accu checks w/ ISS. HgbA1c requested. 10/08/2024: A1c of 5.6 #3. Hypertension: Continue home regimen including losartan, hydrochlorothiazide, amlodipine, PRN hydralazine. #4. Hyperlipidemia: Not on regimen, defer to outpatient. #5. Anxiety and depression: We will continue patient on fluoxetine and appropriate regimen. #6. GERD: Per current list on chronic regimen, will have as needed Mylanta. #7. Restless leg syndrome: Per current list not on chronic regimen, may certainly add agent if necessary. DVT: SCDs Charges/Coding Visit Charges Inpatient E&M: 23380 Subs Hosp L2
[2024-10-09 11:47] LABS: Bedside Glucose 110 mg/dL (74-106)
[2024-10-09 11:53] VITALS: BP 134/86; PULSE 54; RESP 17; TEMP 36.8; O2SAT 95
[2024-10-09] MEDS: 0.9% Saline Lock 10 ML Syringe IV (12:58)
[2024-10-09 15:55] VITALS: BP 145/99; PULSE 58; RESP 16; TEMP 36.7; O2SAT 95
[2024-10-09 16:51] LABS: Bedside Glucose 142 mg/dL (74-106)
[2024-10-09 20:45] VITALS: BP 146/92; PULSE 66; RESP 18; TEMP 36.7; O2SAT 99
[2024-10-09 22:30] LABS: Bedside Glucose 110 mg/dL (74-106)
[2024-10-10] VITALS (10 sets, daily range): BP systolic 96–140; BP diastolic 68–86; PULSE 56–75; RESP 16–20; TEMP 36.4–36.9; O2SAT 95–97; BMI 29.6; BMI 29.0; BMI 28.8
[2024-10-10 04:09] LABS: Absolute Lymphocyte Count 2.25 X10^3/uL (0.83-4.51); Basophil# 0.08 X10^3/uL; Basophil% 0.9 % (0-1); Eosinophils% 5.8 % (0-5); Hematocrit 38.2 % (40-54); Hemoglobin 13.2 g/dL (13.0-16.5); Lymphocyte # 2.25 X10^3/ul (0.83-4.51); Lymphocyte % 26.2 % (19-41); Mean Corp Hgb Conc 34.6 g/dL (32-36); Mean Corpuscular Hgb 29.2 pg (27.0-32.0); Mean Corpuscular Volume 84.5 fL (80-94); Mean Platelet Vol. 9.6 fl (6.2-12.0); Monocyte# 0.69 X10^3/uL; NRBC Flagged by Analyzer 0 % (0-5); Neutrophil # 5.03 X10^3/uL (2.7-7.7); Neutrophil % 58.6 % (47-70); Platelet Count 396 K/mm3 (150-450); RBC Distribution Width CV 12.8 % (11.6-14.6); RBC Distribution Width SD 39.5 fl (35.1-43.9); Red Blood Count 4.52 M/mm3 (4.6-6.2); White Blood Count 8.6 K/mm3 (4.4-11.0)
[2024-10-10] MEDS: Vancomycin IV 1,000 MG/200 ML BAG 200 MG IV ×2 (04:43→13:12)
[2024-10-10 04:51] LABS: Anion Gap 14 (5-15); BUN 18 mg/dL (4-19); BUN/Creat Ratio 17.9 RATIO (10-20); Calcium 9.1 mg/dL (7.6-11.0); Chloride 102 mmol/L (96-108); EST Glomerular Filtration Rate 86 (>60); Estimated Creatinine Clearance 99.42 ml/min; Glucose 134 mg/dL (70-99); Potassium 3.4 mmol/L (3.3-5.1); Sodium Level 139 mmol/L (133-145)
--- NOTE | 2024-10-10 05:00 | EKG12_ITS ---
Test Reason : PRE-OP Blood Pressure : */* mmHG Vent. Rate : 69 BPM Atrial Rate : 69 BPM P-R Int : 170 ms QRS Dur : 84 ms QT Int : 400 ms P-R-T Axes : 10 -24 12 degrees QTcB Int : 428 ms Normal sinus rhythm Normal ECG No previous ECGs available Confirmed by Fox Parker ([id number]), photography editor ANASTASIIA MANUEL ([id number]) on 10/11/2024 5:59:17 AM Referred By: CONSTANTINE Confirmed By: Fox Parker
[2024-10-10] MEDS: Piperacil/Tazobactam 3.375 GM in 0.9% Normal Saline (50mL MB+) 50 ML IV ×2 (05:56→13:15)
[2024-10-10] MEDS: amLODIPine 5 MG Tablet PO (05:57)
[2024-10-10] MEDS: Losartan Potassium 100 MG Tablet PO (05:58)
[2024-10-10] MEDS: 0.9% Normal Saline (100mL Bag) 100 ML 15 ML IV ×2 (06:01→13:16)
[2024-10-10 06:35] LABS: Bedside Glucose 151 mg/dL (74-106)
--- NOTE | 2024-10-10 07:04 | PCM.PRE.AN2 ---
ASA Classification* ASA Classification ASA Classification: 2 Assessment & Plan Anesthesia* Anesthesia Assessment Anesthesia Assessment: Discussed sedation and/or anesthesia options, risks, benefits, and alternatives with patient/parents/legal guardian/POA. Questions invited. The patient/parents/legal guardian/POA seems to understand and agrees to proceed with anesthesia plan. Reviewed the physical assessment, medical history, allergy history and patient home medications list prior to surgery/procedure/anesthetic and documented any changes. Performed airway and anesthesia risk assessments. Anesthesia Type Anesthesia Type: MAC History Source History Obtained from:: Patient and Chart Anesthesia Focused Assessment* Temperature: 97.9 F Pulse Rate: 75 Blood Pressure: 135/84 Respiratory Rate: 18 Pulse Ox: 96 Oxygen Delivery Method: Room Air Airway Assessment Mouth opens: >3 cm Mallampati Score: IV Teeth Condition: Caps/Crowns (Patient has crowns on left lower molar.) Neck Range of motion (ROM): Limited ROM (Somewhat decreased extension) Focused Labs Anesthesia Preop lab: CBC WBC 8.6 K/mm3 (4.4-11.0) 10/10/24 03:41 10/10/24 RBC 4.52 M/mm3 (4.6-6.2) L 10/10/24 03:41 10/10/24 Hgb 13.2 g/dL (13.0-16.5) 10/10/24 03:41 10/10/24 Hct 38.2 % (40-54) L 10/10/24 03:41 10/10/24 Plt Count 396 K/mm3 (150-450) 10/10/24 03:41 10/10/24 CHEMISTRY Potassium 3.4 mmol/L (3.3-5.1) 10/10/24 03:41 10/10/24 Sodium 139 mmol/L (133-145) 10/10/24 03:41 10/10/24 Magnesium 2.0 mg/dL (1.6-2.6) 10/06/24 19:45 10/06/24 BUN 18 mg/dL (4-19) 10/10/24 03:41 10/10/24 Creatinine 1.0 mg/dL (0.8-1.3) 10/10/24 03:41 10/10/24 Glucose 134 mg/dL (70-99) H 10/10/24 03:41 10/10/24 POC Glucose 151 mg/dL (74-106) H 10/10/24 05:51 10/10/24 TSH 2.43 uIU/mL (0.358-3.74) 05/27/22 07:06 05/27/22 COAG Pre-Assessment Diagnosis/Proposed Procedure Planned Operative Procedure(s): Revision amputation long finger, open fracture on the right. Anesthesia History Anesthesia History - demand equipment repairer: Anesthesia History - demand equipment repairer Hx Hospitalization No 12/26/22 10:44 Any Problems With Anesthesia No 10/09/24 20:47 Cholinesterase deficiency No 10/09/24 20:47 You/Your Family Experience No 10/09/24 20:47 fever (hyperthermia) with Relationship Recent Exposure to Contagious No 10/09/24 20:47 Disease Does patient have nerve No 10/09/24 20:47 stimulator Patient instructed to have No 10/09/24 20:47 device shut off --Does patient have Pacemaker No 10/10/24 06:04 or ICD? When Was Last Pacemaker Check QUESTION #4 FULL TEXT: You/Your Family Experience fever (hyperthermia) with Anesthesia Last Oral Intake Last Oral intake: Last Oral Intake NPO since 00:00 10/10/24 06:04 Meds taken in AM with sips of Yes 10/10/24 06:04 water? Meds patient instructed to took Cozaar and Norvasc at 10/10/24 06:04 take am of surgery [id number] with sips pastor PONV PONV - demand equipment repairer: PONV - demand equipment repairer Female HX of Motion Sickness HX of N/V After Surgery Non-Smoker Duration of Surgery greater than 60 minutes Number of Risk Factors PONV Score Height & Weight Height & Weight: Anesthesia: Height & Weight Height 6 ft 10/10/24 06:04 Weight: 96.4 kg 10/10/24 06:04 Body Mass Index (BMI) 28.8 10/10/24 06:04 Respiratory Assessment Respiratory Assessment - demand equipment repairer: Respiratory Tract Infection Hx - demand equipment repairer Hx Respiratory Tract Infection No 10/09/24 20:47 STOP Sleep Apnea STOP Sleep Apnea - demand equipment repairer: STOP Sleep Apnea - demand equipment repairer Hx Hypertension Yes 10/07/24 09:50 Hx Sleep Apnea Yes 10/06/24 22:13 CPAP Yes 10/06/24 22:13 BIPAP No 10/06/24 22:13 Do you snore loudly (louder than talking or can be heard Do you often feel tired/ fatigued/ sleepy during daytime? Has anyone observed you stop breathing during sleep? STOP Results Positive 10/06/24 22:13 QUESTION #5 FULL TEXT : Do you snore loudly (louder than talking or can be heard through closed doors)? Tobacco Use History Tobacco Use History - demand equipment repairer: Tobacco Use History - demand equipment repairer Tobacco Use Smoking Status Current some day smoker 10/06/24 22:13 Hx Tobacco Use No 10/06/24 22:13 Years Smoking Packs Smoked per Day Smoking Cessation Date was within the last 15 years Hx Smoking Cessation Date Hx Smoking Cessation Counseling Hematologic Medial History Hematologic Hx - demand equipment repairer: Hematologic Medical Hx - furniture cleaner Hx of Blood Transfusion No 10/06/24 22:13 Hx of Transfusion in last 3 No 10/06/24 22:13 Months Date of Last Transfusion (if within last 3 months) Ever experience any problems No 10/06/24 22:13 with transfusion(s)? Specify any problems Hx of Preganancy in last 3 N/A 10/06/24 22:13 Months Nurse Filling Out Transfusion CSIGNORIN 10/06/24 22:13 & Questions: Date: 10/06/24 10/06/24 22:13 Time: 22:15 10/06/24 22:13 Patient unable to answer at this time (ie. confused, unrespo /Reproduction History /Reproductive History - demand equipment repairer: /Reproductive Hx- demand equipment repairer Hx Now No 10/09/24 20:47 Gestational Age (in weeks): EDC: Hx Hx Para Hx Section SAB No 10/09/24 20:47 Active Medications Active Medications: Current Medications Generic Name Dose Route Start Last Admin Trade Name Freq PRN Reason Stop Dose Admin Acetaminophen 650 mg 10/06/24 21:42 10/08/24 21:49 Acetaminophen 325 Mg Tablet PO 650 mg Q4H PRN PRN Administration Fever, pain 1-10/10 Al Hydroxide/Mg Hydroxide 30 ml 10/06/24 21:42 Mag Hydrox/Al Hydrox/Simeth 30 Ml Udc PO Q6H PRN PRN Gastric Burning Albuterol Sulfate 2.5 mg 02/23/25 21:42 Albuterol 2.5 Mg/3 Ml Vial.Neb. INHALATION Q2H PRN PRN Dyspnea, wheezing Amlodipine Besylate 5 mg 10/07/24 10:00 10/10/24 05:57 Amlodipine 5 Mg Tablet PO 5 mg DAILY SCOTTY Administration Protocol Bupropion HCl 150 mg 10/07/24 10:00 10/09/24 09:56 Bupropion (Xl) 150 Mg Tablet.Xl PO 150 mg DAILY SCOTTY Administration Fluoxetine HCl 20 mg 10/07/24 10:00 10/09/24 09:56 Fluoxetine 20 Mg Capsule PO 20 mg DAILY SCOTTY Administration Glucagon 1 mg 10/06/24 21:42 Glucagon 1 Mg/Ml Syringe IM X1 PRN HYPOGLYCEMIA Protocol Guaifenesin 20 ml 10/06/24 21:42 Guaifenesin 10 Ml Udc (200mg/10ml) PO Q4H PRN PRN COUGH Hydralazine HCl 10 mg 10/06/24 21:42 Hydralazine 20 Mg/Ml Vial IV Q4H PRN PRN SBP > 160 Protocol Hydrochlorothiazide 25 mg 10/07/24 10:00 10/09/24 09:56 Hydrochlorothiazide 25 Mg Tablet PO 25 mg DAILY SCOTTY Administration Vancomycin IV-PHARMACY TO DOSE 500 mls @ 250 mls/hr 10/06/24 21:42 1 each/ Sodium Chloride IV X1 PRN Rx to Dose Protocol Piperacillin Sod/Tazobactam 50 mls @ 12.5 mls/hr 10/07/24 06:00 10/10/24 05:56 Sod 3.375 gm/ Sodium Chloride IV 12.5 mls/hr Q8 SCOTTY Administration Dextrose 250 mls @ 0 mls/hr 10/06/24 21:42 Dextrose 10%-Water IV .Q0M PRN HYPOGLYCEMIA Protocol As Directed Sodium Chloride 100 mls @ 15 mls/hr 10/06/24 21:50 10/10/24 06:17 IV 0 mls/hr .Q6H40M PRN Infusion Saline Flush Sodium Chloride 100 mls @ 15 mls/hr 10/06/24 21:50 IV .Q6H40M PRN Additional IVPB Infusion Vancomycin HCl 1,000 mg in 200 mls @ 200 mls/hr 10/07/24 05:30 10/10/24 06:16 Vancomycin IV Infused Q8H [facility]1983 Infusion Insulin Human Lispro 0 unit 10/06/24 22:00 10/10/24 05:58 Insulin Lispro 100 Unit/Ml Insuln.Pen SC Not Given ACHS [facility]1983 Protocol Loratadine 10 mg 10/07/24 10:00 10/09/24 09:54 Loratadine 10 Mg Tablet PO Not Given DAILY SCOTTY Losartan Potassium 100 mg 10/07/24 10:00 10/10/24 05:58 Losartan Potassium 100 Mg Tablet PO 100 mg DAILY SCOTTY Administration Melatonin 3 mg 10/06/24 21:42 Melatonin 3 Mg Tablet PO QHS PRN PRN INSOMNIA Morphine Sulfate 2 mg 10/06/24 21:42 Morphine 2 Mg/Ml Syringe IV Q3H PRN PRN Pain Score 6-10 Ondansetron HCl 4 mg 10/06/24 21:42 Ondansetron 4 Mg/2 Ml Vial IV Q8H PRN PRN NAUSEA/VOMITING Oxycodone HCl 5 mg 10/06/24 21:42 Oxycodone 5 Mg Tablet PO Q4H PRN PRN Pain Score 4-10 Prochlorperazine Edisylate 5 mg 10/06/24 21:42 Prochlorperazine 10 Mg/2 Ml Vial IV Q4H PRN PRN Breakthrough nausea/vomiting Senna/Docusate Sodium 2 tablet 10/06/24 21:42 Senna/Docusate Sodium 1 Tablet PO BID PRN PRN Constipation Sodium Chloride 10 - 40 ml 10/06/24 21:50 10/09/24 12:58 0.9% Saline Lock 10 Ml Syringe IV 10 ml UD PRN Administration SALINE FLUSH Vancomycin Protocol 1 lab 10/11/24 03:00 Vancomycin Trough/Random Due 10/11/24 07:00 DAILY [facility] Medical History GERD (gastroesophageal reflux disease) Cigar smoker CKD (chronic kidney disease), stage II EREN on CPAP Wears glasses Depression Restless legs Non-smoker Diabetes type 2, controlled HTN (hypertension) Home Medications ?Medication ?Instructions ?Recorded ?Last Taken ?Type cetirizine 10 mg capsule (Zyrtec) 10 mg PO PRN PRN allergy symptoms 12/26/22 05/14/24 History fluoxetine 20 mg capsule (Prozac) 20 mg PO DAILY depression 12/26/22 10/06/24 12:00 History losartan 100 1 tab PO DAILY hypertension 12/26/22 10/06/24 12:00 History mg-hydrochlorothiazide 25 mg tablet metformin 1,000 mg tablet 1,000 mg PO DAILY diabetes 12/26/22 10/06/24 12:00 History cephalexin 500 mg capsule 500 mg PO Q6 #40 CAPSULES 09/30/24 10/06/24 18:00 Rx tirzepatide 5 mg/0.5 mL 5 mg subcut QWEEK diabetes 10/03/24 09/30/24 12:00 History subcutaneous pen injector (Mounjaro) bupropion HCl 150 mg 24 hr tablet, 150 mg PO DAILY depression 10/06/24 10/06/24 12:00 History extended release amlodipine 10 mg tablet 10 mg PO DAILY BLOOD PRESSURE 10/07/24 10/10/24 History Allergy/AdvReac Type Severity Reaction Status Date / Time Environmental Allergies: Allergy dermatitis Verified 10/06/24 19:15 Uncoded Family History Mother Hypertension Father Hypertension Diabetes Seizures Family History no significant family his Surgical History History of ankle surgery History of esophagogastroduodenoscopy (EGD) Hx of wisdom tooth extraction Social History household members: spouse and children Smoking Status: Current some day smoker tobacco type: cigars per week: 1 alcohol intake: never substance use type: does not use Review of Systems (Anesthesia) ROS Narrative System reviewed and no additional complaints, except as documented.
--- NOTE | 2024-10-10 07:11 | HP.PCM.SX_ITS ---
[facility] - General General Date of Admission: 10/06/24 Chief Complaint: Worsening wound appearance, necrotic appearance, redness, odor. [facility] Narrative Guero Power is a 59-year-old male with past medical history of type 2 diabetes (A1c of 6.2 in 2022 and reports recent A1c of 6 or so) who presents with a right long finger crush injury from placing logs into a fireplace on 30 Sep 2024. He went to the emergency department that day and was seen and evaluated. Per emergency room physician's note, the nailbed/nail did not appear to have been violated, and the laceration was more on the volar aspect of the fingertip. Therefore nail was kept in place and the finger was washed out with the volar laceration closed with interrupted nylon sutures. An x-ray demonstrated a comminuted distal tuft fracture. The patient's tetanus was updated and he was placed on antibiotics (he has been taking them ever since). On 03 Oct 2024, he followed up with me in my office and had an evolving soft tissue injury to the finger tip with unclear viability of the avulsed/crushed finger tip, but no signs of infection. He was instructed to continue Keflex (from ED), do Aquacel Ag for dressing changes and continue the Alumafoam splint for the tuft fracture stabilization/protection. On 06 Oct 2024, he presented to the emergency department for further demarcation of the tissue and the development of black eschar at the finger tip (dry gangrene) with proximal erythema. He was admitted to medicine for cellulitis work up. Today (07 Oct 2023) on the floor, he has stable VS and WBC is 8.5. Glucose 127. He was placed on broad-spectrum antibiotics (Vancomycin and Zosyn). 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 We discussed risks and benefits of today's surgery and they would like to proceed. NO CHANGE in health history since last seen and evaluated. Ready to proceed with surgery. Patient has improved as an inpatient with elevation and IV antibiotics. The skin quality has improved. He is ready for definitive reconstruction with a revision amputation. [facility] Medical History GERD (gastroesophageal reflux disease) Cigar smoker CKD (chronic kidney disease), stage II EREN on CPAP Wears glasses Depression Restless legs Non-smoker Diabetes type 2, controlled HTN (hypertension) Home Medications ?Medication ?Instructions ?Recorded ?Last Taken ?Type cetirizine 10 mg capsule (Zyrtec) 10 mg PO PRN PRN all ergy symptoms 12/26/22 05/14/24 History fluoxetine 20 mg capsule (Prozac) 20 mg PO DAILY depre ssion 12/26/22 10/06/24 12:00 History losartan 100 1 tab PO DAILY hypertension 12/26/22 10/06/24 12:00 History mg-hydrochlorothiazide 25 mg tablet metformin 1,000 mg tablet 1,000 mg PO DAILY diabetes 0 12/26/22 10/06/24 12:00 History cephalexin 500 mg capsule 500 mg PO Q6 #40 CAPSULES 10/06/24 18:00 Rx tirzepatide 5 mg/0.5 mL 5 mg subcut QWEEK diabetes 0 10/03/24 09/30/24 12:00 History subcutaneous pen injector (Dannyuncorettaro) bupropion HCl 150 mg 24 hr tablet, 150 mg PO DAILY dep ression 10/06/24 10/06/24 12:00 History extended release amlodipine 10 mg tablet 10 mg PO DAILY BLOOD PRESSUR E 10/07/24 10/10/24 History Allergy/AdvReac Type Severity Reaction Status Date / Time Environmental Allergies: Allergy dermatitis Verified 10/06/24 19:15 Uncoded Family History Mother Hypertension Father Hypertension Diabetes Seizures Family History no significant family his Surgical History History of ankle surgery History of esophagogastroduodenoscopy (EGD) Hx of wisdom tooth extraction Social History household members: spouse and children Smoking Status: Current some day smoker tobacco type: cigars per week: 1 alcohol intake: never substance use type: does not use Vital Signs Vital Signs Vital Signs: 10/09/24 08:12 10/09/24 10:01 10/09/24 11:53 Temperature 97.9 F 98.2 F Temperature Source Oral Oral Pulse Rate 60 54 L Pulse Strength Normal (2+) Respiratory Rate 16 17 Respiratory Effort Respiratory Depth Respiratory Pattern Blood Pressure 145/94 H 134/86 H Blood Pressure Mean 111 102 Blood Pressure Source Monitor Monitor Blood Pressure Position Sitting Sitting Blood Pressure Location Right Arm Right Arm Pulse Ox 96 95 Oxygen Delivery Method Room Air Room Air 10/09/24 15:55 10/09/24 20:45 10/09/24 20:45 Temperature 98.0 F Temperature Source Oral Pulse Rate 58 L 66 Pulse Strength Normal (2+) Respiratory Rate 16 Respiratory Effort Respiratory Depth Respiratory Pattern Blood Pressure 145/99 H Blood Pressure Mean 114 Blood Pressure Source Monitor Blood Pressure Position Sitting Blood Pressure Location Right Arm Pulse Ox 95 99 Oxygen Delivery Method Room Air Room Air 10/09/24 20:45 10/10/24 05:29 10/10/24 05:29 Temperature 98.1 F 97.9 F Temperature Source Oral Oral Pulse Rate 66 75 75 Pulse Strength Respiratory Rate 18 18 18 Respiratory Effort Normal Non-Labored Respiratory Depth Normal Respiratory Pattern Normal Blood Pressure 146/92 H 135/84 H Blood Pressure Mean 110 101 Blood Pressure Source Monitor Monitor Blood Pressure Position Sitting Supine Blood Pressure Location Left Arm Right Arm Pulse Ox 99 96 96 Oxygen Delivery Method Room Air Room Air Room Air 10/10/24 06:04 Temperature 97.9 F Temperature Source Oral Pulse Rate 75 Pulse Strength Respiratory Rate 18 Respiratory Effort Respiratory Depth Respiratory Pattern Blood Pressure 135/84 H Blood Pressure Mean 101 Blood Pressure Source Monitor Blood Pressure Position Semi-Fowlers Blood Pressure Location Left Arm Pulse Ox 96 Oxygen Delivery Method Room Air Weight Weight: 212 lb 8.41 oz Body Mass Index (BMI) 28.8 Physical Exam Narrative Inspection: Volar V shaped laceration over the fingertip at and distal to the DIP joint. The finger tip distal to the zone of injury is now demonstrating dry gangrene. No fluid collections. Proximal reactive erythema v cellulitis on the finger is improving (skin healthier and less indurated). No mallet finger and no obvious nailbed laceration. Palpation: No purulent drainage. Some tenderness to palpation, but much improved. No TTP over A1 derrick or with flexor tendon excursion. No collateral ligament instability at the DIP joint. Motor: Able to bend and extend all MP, PIP, and DIP joints. Sensory: Intact to light touch on the radial and ulnar borders except distal to the zone of injury on the right long finger the fingertip flap is numb. Vascular: Finger tips are warm and well perfused with <2 second capillary refill except for the injured finger. Results Lab / Micro Data 10/10/24 03:41 10/10/24 03:41 Labs: Laboratory Results - last 24 hr 10/09/24 06:58: POC Glucose 150 H 10/09/24 11:19: POC Glucose 110 H 10/09/24 16:26: POC Glucose 142 H 10/09/24 20:56: POC Glucose 110 H 10/10/24 03:41: WBC 8.6, RBC 4.52 L, Hgb 13.2, Hct 38.2 L, MCV 84.5, MCH 29.2, MCHC 34.6, RDW Std Deviation 39.5, RDW Coeff of [place] 12.8, Plt Count 396, MPV 9.6, Immature Gran % (Auto) 0.500, Neut % (Auto) 58.6, Lymph % (Auto) 26.2, [place] % (Auto) 8.0, Eos % (Auto) 5.8 H, Baso % (Auto) 0.9, Absolute Neuts (auto) 5.0, Absolute Lymphs (auto) 2.25, Nucleated RBC % 0, Sodium 139, Potassium 3.4, Chloride Direct 102, Carbon Dioxide 23.0, Anion Gap 14, BUN 18, Creatinine 1.0, Estim Creat Clear Calc 99.42, Est GFR (MDRD) Non-Af 86, BUN/Creatinine Ratio 17.9, Glucose 134 H, Calcium 9.1 10/10/24 05:51: POC Glucose 151 H Micro: Microbiology 10/06/24 22:55 Wound - Finger Gram Stain - Final 10/06/24 22:55 Wound - Finger Wound Culture - Preliminary Staphylococcus aureus Assessment & Plan Assessment/Plan (1) Open fracture of finger: PLAN: Plan I talked to to the patient extensively about debridement and possible options for coverage of the likely bone/soft tissues including dermal substitutes/grafts, as well as reconstructions with local or regional soft tissue coverage/flaps, groin flaps, or even free tissue transfer. We also talked about reconstruction with a revision amputation. We talked about partial amputation with wound care so as to save length. Patient is not interested in multiple surgeries/revisions. He would like one revision amputation. He understands decrease in hand function from shortening of the long finger. He is accepting of the risks of infection, bleeding, poor scaring/contracture, wound healing problems, need for repeat surgeries if there are problems with the first, nerve pain/neuroma. INTERVAL H&P PLAN, DATE OF SURGERY: We will proceed with surgery today. I talked the patient extensively about the risks of surgery, including bleeding, infection, damage to surrounding structures, surgical site dehiscence and wound formation, need for wound care, need for repeat operations, failure to obtain the desired result, DVT/PE, and the risks of anesthesia including , including stroke (from low blood pressure/ischemia or clot). The benefits and alternatives of this surgery were also discussed. All of their questions were answered, and they agreed to proceed with surgery. I marked his right long finger for revision amputation.
--- NOTE | 2024-10-10 07:25 | NURSING ---
2044 clinical findings completed and pt requested joann to change the dressing on his finger d/t the smell. pt was encouraged to let staff see the wound and change the dressing. pt acknowledged.
--- NOTE | 2024-10-10 07:30 | AMP_PTH ---
PATIENT: ZAC ROCHA LOC: MS3 U#:[id number] AGE/SX: 59/M ROOM: [facility] RE10/06/[address]: Dr. Cristofer Greene MD : 1965 BED: 1 DIS: 10/10/2024 SPEC #: [id number] RECD: 10/10/24 09:10 STATUS: JENNIFER LIZARRAGAWill #: [id number] ELLEN: 10/10/24 07:[address]: Tom Middleton DEPT: SURGICAL PATHOLOGY RECD BY: Autumn Bhat ENTERED: 10/10/24 11:04 SP TYPE: Amputation OTHR DR: MD Dr. Salvador Hamilton DO Dr. Nicholas F Kotsonis, MD Tissues: Finger, NOS Procedures: Decalcification bone/plaque Surgery Specimen Level V HEADER OPERATION: Revision amputation long finger, open fracture PRE-OP DIAGNOSIS: Open fracture of finger TISSUE SUBMITTED: Right middle finger MICROSCOPIC DIAGNOSIS Right middle finger, revision amputation: * Skin/soft tissue necrosis and suppurative inflammation. * Trabecular bone with focal osteomyelitis. MICROSCOPIC DESCRIPTION Slides are reviewed. GROSS DESCRIPTION Received in fixative is one container labeled with the patient's name and designated Right middle finger. The specimen consists of a portion of a finger measuring 5.5 x 2.5 x 2cm. The dorsal surface of the finger shows brownish-black congested and hemorrhagic area measuring 3.5 x 2.5cm. Multiple sutures are noted in this area. Nail is attached, displaying focal blue discoloration. Fund Accounting Manager sections are submitted in three cassettes as follows: 1- brownish-black congested, hemorrhagic and ulcerated area, 2,3 - bone after decalcification. 10/10/2024 CPT:66123,72358
[2024-10-10] MEDS: Bupivacaine 0.25% 30 ML Vial (08:01)
[2024-10-10] MEDS: Lidocaine 1% (20 ml mdv) 20 ML Vial (08:01)
--- NOTE | 2024-10-10 08:30 | WOUNDNOTE ---
Pt off unit for surgery.
--- NOTE | 2024-10-10 09:57 | PCM.POST.ANE ---
Anesthesia: Postop Eval I Current Vital Signs Temperature: 97.5 F Pulse Rate: 73 Blood Pressure: 114/76 Respiratory Rate: 20 Pulse Ox: 97 Oxygen Delivery Method: Room Air Assessment Airway patent: Yes Spontaneous unlabored respirations: Yes Mental status: Awake and Calm nausea: No Vomiting: No Anesthesia Complication: No Fluid Hydration Crystalloid volume administer (ml): 300 Total IV fluid infused: 300 Progress Note Anesthesia document: Postop Eval 1 completed: Yes
[2024-10-10] MEDS: FLUoxetine 20 MG Capsule PO (10:01)
[2024-10-10] MEDS: buPROPion (XL) 150 MG TABLET.XL PO (10:01)
[2024-10-10] MEDS: hydroCHLOROthiazide 25 MG Tablet PO (10:01)
--- NOTE | 2024-10-10 10:30 | DCINST_ITS ---
Discharge Instructions Diet Discharge Diet: Low fat / Low cholesterol and Carb Control Diet DC O2, CPAP, BIPAP needs Home O2 Discharge instructions: No Dressing / Incision Discharge Activity: Return to Normal Activity Dressing / Incision Call your doctor if your incision/area has: Continuous Slow Oozing and Increased Redness Call your doctor if you observe: Fever of 101 or Higher, Shortness of breath, Dizziness, Fainting spells, Swelling in the ankles, Chest pain and Increased palpitations (irregular heartbeat) Follow Up Care Test Results: Test results from this visit will be discussed in further detail at your follow- up appointment, if applicable. Discharge Plan Admission Admit Date/Time: 10/06/24 20:46 Attending Provider: Cristofer Greene Primary Care Provider: Salvador Barnes Consulting Providers: Tom Middleton; Danica Bowling Instructions Additional Instructions / Restrictions: Plastics discharge instructions Keep the dressing on and in place until clinic appointment tomorrow. If it feels too tight, then loosen it. Call with any questions or concerns. Do not use the operative extremity for now. Continue antibiotics per medicine team. Elevate the hand for pain control Discharge Orders/Prescriptions Prescriptions: New amoxicillin-pot clavulanate 875-125 mg tablet 1 tab PO BID 6 Days Qty: 12 0RF Continued Mounjaro 5 mg/0.5 mL pen injector 5 mg subcut QWEEK Patient Comments: [NO ORIGINAL SIG] Rx Instructions: pts takes q mondays losartan-hydrochlorothiazide 100-25 mg Tablet 1 tab PO DAILY metformin 1,000 mg Tablet 1,000 mg PO DAILY fluoxetine [Prozac] 20 mg Capsule 20 mg PO DAILY Zyrtec 10 mg Capsule 10 mg PO PRN PRN (Reason: allergy symptoms) bupropion HCl 150 mg tablet extended release 24 hr 150 mg PO DAILY amlodipine 10 mg tablet 10 mg PO DAILY Discontinued cephalexin 500 mg capsule 500 mg PO Q6 Qty: 40 0RF Referrals / Follow Up: Salvador Barnes DO [Primary Care Provider] - Within 1 Week Tom Middleton MD [Med Staff - Active Staff] - Within 2 Weeks Disposition Disposition (needs filled in before D/C Order can be placed): Home, Self Care
--- NOTE | 2024-10-10 10:54 | PCM.OPRPT ---
Operative Report (Standard) Operative Information Date of Procedure: 10/10/24 Pre-Operative Diagnosis: Right long finger dry gangrene/loss of volar soft tissue distally Post-Operative Diagnosis: Same Surgery/Procedure Performed: 1) Revision amputation, right long finger, at the level of the proximal interphalangeal joint (CPT code: 51774) engineering technical analyst: Yes Auricular Detoxification Specialist: Chilo Adler Tasks completed by human resources office assistant: Retracting Type of Anesthesia: MAC/Supplemental (10 cc of 50/50 mixture of 1% lidocaine and 0.25% Marcaine ) RN Documented Start/Stop Times: Operation Date: 10/10/24 07:30 Case Time Into Pre-Op 10/10/24 07:00 Out of Pre-Op 10/10/24 07:28 Anesthesia Start 10/10/24 07:29 Into Room 10/10/24 07:29 Procedure Start 10/10/24 07:45 Procedure End 10/10/24 08:03 Into Recovery 10/10/24 08:12 Out of Recovery 10/10/24 08:31 Procedure Start Time: 07:45 Procedure Stop Time: 08:03 Select all DRAINS/GRAFTS/IMPLANTS that apply: None Estimated Blood Loss: minimal Specimen collected: Yes Description of specimen(s) removed: Amputated distal digit Description of surgery: Indications: Guero Power is a 59-year-old male who had a right long finger open tuft fracture with severe crush injury to the volar skin and soft tissues of the right long finger. He failed conservative management with local wound care and subsequently developed complete loss of the volar soft tissue of the distal finger with dry gangrene and proximal cellulitis/reactive erythema. He was admitted to the hospital and improved with regards to cellulitis standpoint on IV antibiotics and elevation, but he had persistent soft tissue deficit over the fingertip to the level of nearly mid P2. I talked to him extensively about options (alternatives for debridement and attempted salvage or length), and he wanted one definitive surgery if possible. We talked about amputation at the level of the PIP joint to definitively get soft tissue coverage and be out of the zone of injury. We talked about loss of finger flexion with this option (anticipated less MP flexion). He was accepting of the plan and wanted this option. Procedure details: Patient was correctly identified in preoperative holding and the digit was marked. He was taken back to the operating room where he was administered the above-noted local anesthesia as well as some sedation. He was prepped and draped in sterile fashion. Tourniquet was inflated on the arm to 250 mmHg. A timeout was performed. The fingertip wound was indeed full-thickness and complete dry gangrene down to the level near mid P2. A 15 blade scalpel was used to excise the necrotic distal digit at the level of the PIP joint with a volar flap created with the residual healthy soft tissue. From the middle phalanx and distal, the digit was excised and sent to pathology. The digital nerves were identified and traction neurectomies were performed. Hemostasis of the digital arteries was performed with bipolar electrocautery. The tourniquet was let down and further hemostasis was obtained with the bipolar. The proximal phalanx head was then rongeured so as to eliminate cartilage and smooth the surface. The volar flap was then rotated and advanced loosely over the P1 head and sutured into place with interrupted 3-0 nylon suture. Xeroform Raquel and Coban were applied. Patient tolerated the procedure well. Postoperative plan: Follow-up with me tomorrow as an outpatient in clinic for wound check. Leave the dressing on until then. Agree with medicine/infectious disease plan for 1 week of Augmentin. Okay for discharge from plastic surgery standpoint. Surgical Findings: Necrotic volar soft tissue over the area of the open fracture as well as over the flexor tendons. Complications Complications: No Admit VTE Documentation VTE Mechan Device Prophylaxis: SCD's
[2024-10-10] MEDS: Acetaminophen 325 MG Tablet 650 MG PO (11:16)
[2024-10-10] MEDS: oxyCODONE 5 MG Tablet PO (11:16)
[2024-10-10 11:30] LABS: Bedside Glucose 144 mg/dL (74-106)
--- NOTE | 2024-10-10 11:39 | PHA.DC.MC.R ---
Pharmacy [facility] has performed discharge medication reconciliation and counseling for this patient. 1. AMOXICILLIN/CLAVULANATE 875MG PO BID X 6 DAYS 2. STOP KEFLEX The patient's discharge medication list was reviewed for discrepancies and discrepancies were resolved. The patient was counseled on the following discharge medications and changes in medications for homegoing were reviewed. The Reason for Use, instructions for use, and potential side effects were reviewed for all new medications. The patient's questions regarding all of their medications were answered. The patient was able to verbally demonstrate an understanding of their discharge medications. Medications at Discharge Home Medications cetirizine 10 mg capsule (Zyrtec) 10 mg PO PRN PRN allergy symptoms 12/26/22 fluoxetine 20 mg capsule (Prozac) 20 mg PO DAILY depression 12/26/22 losartan 100 mg-hydrochlorothiazide 25 mg tablet 1 tab PO DAILY hypertension 12/26/22 metformin 1,000 mg tablet 1,000 mg PO DAILY diabetes 12/26/22 tirzepatide 5 mg/0.5 mL subcutaneous pen injector (Mounjaro) 5 mg subcut QWEEK diabetes 10/03/24 bupropion HCl 150 mg 24 hr tablet, extended release 150 mg PO DAILY depression 10/06/24 amlodipine 10 mg tablet 10 mg PO DAILY BLOOD PRESSURE 10/07/24 amoxicillin 875 mg-potassium clavulanate 125 mg tablet 1 tab PO BID 6 days #12 tabs 10/10/24
--- NOTE | 2024-10-10 12:08 | POSTOPAN2_ITS ---
Anesthesia Postop Eval I Sum Postop Eval Completion status Anesthesia document: Postop Eval 1 completed: Yes Anesthesia Postop Eval I Summary Anesthesia Postop Eval I Summary: Anesthesia Postop Eval I: Assessment Summary Airway patent Yes 10/10/24 09:59 [email or web address] Spontaneous unlabored Yes 10/10/24 09:59 [email or web address] respirations Mental status Awake,Calm 10/10/24 09:59 [email or web address] nausea No 10/10/24 09:59 [email or web address] Vomiting No 10/10/24 09:59 [email or web address] Anesthesia Postop Eval I: Fluid Summary Crystalloid volume administer 300 10/10/24 09:59 [email or web address] (ml) Colloids volume administered ( ml) Blood Product volume administered (ml) Total IV fluid infused 300 10/10/24 09:59 [email or web address] Anesthesia Postop Eval I: Summary Notes Anesthesia Complication No 10/10/24 09:59 [email or web address] Anesthesia Complication Comment: Post-operative progress note Anesthesia: Postop Eval II Evaluation Mental status: Awake and Calm Pain Level: 0 nausea: No Vomiting: No Complications Anesthesia Complication: No
--- NOTE | 2024-10-10 12:08 | PCM.POSTANE2 ---
Anesthesia Postop Eval I Sum Postop Eval Completion status Anesthesia document: Postop Eval 1 completed: Yes Anesthesia Postop Eval I Summary Anesthesia Postop Eval I Summary: Anesthesia Postop Eval I: Assessment Summary Airway patent Yes 10/10/24 09:59 [email or web address] Spontaneous unlabored Yes 10/10/24 09:59 [email or web address] respirations Mental status Awake,Calm 10/10/24 09:59 [email or web address] nausea No 10/10/24 09:59 [email or web address] Vomiting No 10/10/24 09:59 [email or web address] Anesthesia Postop Eval I: Fluid Summary Crystalloid volume administer 300 10/10/24 09:59 [email or web address] (ml) Colloids volume administered ( ml) Blood Product volume administered (ml) Total IV fluid infused 300 10/10/24 09:59 [email or web address] Anesthesia Postop Eval I: Summary Notes Anesthesia Complication No 10/10/24 09:59 [email or web address] Anesthesia Complication Comment: Post-operative progress note Anesthesia: Postop Eval II Evaluation Mental status: Awake and Calm Pain Level: 0 nausea: No Vomiting: No Complications Anesthesia Complication: No
--- NOTE | 2024-10-10 12:33 | CASEMGMT ---
Addendum entered by Susan Rosenberg 10/10/24 13:33: Received tc from Dr. Middleton's office, appt made for 3:30pm tomorrow. DASHAWN SHELLEY into pt room, pt and aware. Original Note: RN KARSTEN into pt room, pt is aware he will see tomorrow. He states that he thinks his appt is at 1pm but does not know if it is at the [facility] or his office. TC to [facility], will not be seeing pts there tomorrow. TC to 's office, received vm, left message requesting to confirm pt appt time. Pt is aware that this RN KARSTEN will call him once an answer is received. Pt aware that he does need to see tomorrow and will do so. Pt denies any further homegoing needs at this time.
[2024-10-10] MEDS: 0.9% Saline Lock 10 ML Syringe IV (13:13)
--- NOTE | 2024-10-10 14:10 | PCM.DC.SUM ---
Providers Date of Admission: 10/06/24 Primary Care Physician: Dr. Salvador Barnes, Consultations 10/06/24 21:42 Consult: Onc/Wound/senior net architect Routine Comment: Reason for Consult:: R middle finger necrosis, recent fx, cellulitis Consult: Plastic Surgery Routine Consulting Provider: Tom Middleton Reason for Consult: R middle finger necrosis, recent fx, cellulitis EMERGENT Consult: No MD Notified: Yes Date Notified: 10/06/24 Time Notified: 20:47 Method of Notification: ED Physician Initiated Reason For Visit: R MIDDLE FINGER POST FX NECROSIS, CELLULITIS Diagnosis Discharge Diagnosis (1) Open fracture of finger: Status: Inactive Code(s): S62.609B - Fracture of unspecified phalanx of unspecified finger, initial encounter for open fracture Medications at Discharge Home Medications cetirizine 10 mg capsule (Zyrtec) 10 mg PO PRN PRN allergy symptoms 12/26/22 fluoxetine 20 mg capsule (Prozac) 20 mg PO DAILY depression 12/26/22 losartan 100 mg-hydrochlorothiazide 25 mg tablet 1 tab PO DAILY hypertension 12/26/22 metformin 1,000 mg tablet 1,000 mg PO DAILY diabetes 12/26/22 tirzepatide 5 mg/0.5 mL subcutaneous pen injector (Mounjaro) 5 mg subcut QWEEK diabetes 10/03/24 bupropion HCl 150 mg 24 hr tablet, extended release 150 mg PO DAILY depression 10/06/24 amlodipine 10 mg tablet 10 mg PO DAILY BLOOD PRESSURE 10/07/24 amoxicillin 875 mg-potassium clavulanate 125 mg tablet 1 tab PO BID 6 days #12 tabs 10/10/24 Hospital Course Operations - (1) Revision amputation, right long finger, at the level of the proximal interphalangeal joint) Procedures None Summary of Care Provided Minutes Spent on Discharge: 33 Hospital Course: Per HPI: The patient is a 59 y/o M w/ PMHx: Occasional cigar smoker, CKD stage II per GFR trending, HTN, HLD, GERD, Anxiety and Depression, RLS, EREN on CPAP, Diabetes mellitus type II who presents to the [facility] ED on 10/06/24 with history of recent 09/30/24 injury to his R middle finger, crushing it between 2 logs with comminuted fracture of the distal phalanx undergoing ED initiated digital block, for material removal and I&D with suturing of the flap down with referral at discharge to plastic surgery with Grenora and Keflex regimen with tetanus update given with noted 10/03/[address] Dr. Middleton with decision for Aquacel Ag twice daily dressings continued splinting with AlumaFoam splint with plan for completion of Keflex regimen who now re-presents to the [facility] ED on 10/06/24 with history of onset today increased color change with the finger distally black and the dorsal finger also red with foul-smelling clear discharge from the wound reported with no fevers or chills and notes that he has been doing the dressing changes but not specifically washed the region. He does note decreased sensation to the necrotic region and some mild paresthesias around the edge of where he has the erythema to the necrotic section. In the ED workup included T97.5, heart 70, BP 137/80, respiratory rate 18, 100% on room air, CBC with WC 7.5, he 1 15, platelet 4 3 without marked shift, BMP with potassium 3.3, glucose 119 otherwise not marked appearing, CRP only mildly elevated 14.60, ESR 16, plain film of the right middle finger with redemonstration of the acute comminuted fracture of the tuft of the third digit, mild interval volar displacement of the distal fracture fragment, progressive soft tissue emphysema surrounding the fracture site with no radiopaque foreign body and no new fracture or dislocation. In the ED patient ministered IV Zosyn and IV vancomycin. ED discussed case with plastic surgeon who reviewed pictures who recommended admission to medicine with continued IV broad-spectrum antibiotic therapy and planned evaluation in AM. Hospital Course: #1. Recent open fracture of the right middle finger with concern for right middle volar distal phalanx necrotic section as well as circumferential erythema with acute cellulitis, failed outpatient therapy: Will admit to [facility] given stable vital signs, maintain on IV vanc and zosyn, will obtain Wound Cx of discharge as well as Wound MRSA PCR, continue consultation for plastic surgery, plan repeat CBC in AM, continue affected extremity elevation above heart when seated and in bed, monitor erythema outline with VS checks. Wound RN consulted. 10/07/2024: Appreciate plastic surgery's assistance in management. Continue with antibiotics 10/08/2024: Plan for possible surgical intervention on 10/09/2024: Plan for surgery tomorrow 10/10/2024: Status post his right middle finger amputation. Will continue with Augmentin for 6 more days on discharge and he will follow-up with the wound care center/plastic surgery tomorrow and then with further outpatient follow-up. He thinks that he has narcotic prescription for pain control from his initial evaluation so it does not appear that he will need a new one on discharge. I discussed with him and his the plan for discharge today they expressed understanding of the risks and benefits of going home and would like to go home today. #2. Diabetes mellitus type II: Hold oral regimen, additionally will temporarily hold home Mounjaro regimen, ADA diet, accu checks w/ ISS. HgbA1c requested. 10/08/2024: A1c of 5.6 #3. Hypertension: Continue home regimen including losartan, hydrochlorothiazide, amlodipine, PRN hydralazine. #4. Hyperlipidemia: Not on regimen, defer to outpatient. #5. Anxiety and depression: We will continue patient on fluoxetine and appropriate regimen. #6. GERD: Per current list on chronic regimen, will have as needed Mylanta. #7. Restless leg syndrome: Per current list not on chronic regimen, may certainly add agent if necessary. Physical Exam Narrative General: Alert, Oriented x3, Cooperative, No apparent distress HEENT: Atraumatic, PERRLA, EOMI, Normocephalic Oral: Moist Mucosa Neck: Supple, No JVD Lungs: Clear to auscultation, Normal air movement, No rhonchi, No wheeze, No rales Cardiovascular: Regular rate, Regular Rhythm, Normal S1, Normal S2, No murmurs Abdomen: Soft, Non Tender, Non-Distended, No Hepato-splenomegaly Extremities: No edema, Capillary Refill Less than 3 Seconds Skin: OR dressing intact Musculoskeletal: No Tenderness to Palpation of Joints or Extremities Neurological: No focal neurological deficits, Motor Exam 5/5 strength throughout, Sensory exam intact to light touch and pain Psych/Mental Status: Normal Affect, Appropriate Weight / BMI Weight Weight: 212 lb 8.41 oz Body Mass Index (BMI) 28.8 ABG / Lab / Microbiology Data 10/10/24 03:41 10/10/24 03:41 Laboratory: Laboratory Results - last 24 hr 10/09/24 16:26: POC Glucose 142 H 10/09/24 20:56: POC Glucose 110 H 10/10/24 03:41: WBC 8.6, RBC 4.52 L, Hgb 13.2, Hct 38.2 L, MCV 84.5, MCH 29.2, MCHC 34.6, RDW Std Deviation 39.5, RDW Coeff of [place] 12.8, Plt Count 396, MPV 9.6, Immature Gran % (Auto) 0.500, Neut % (Auto) 58.6, Lymph % (Auto) 26.2, [place] % (Auto) 8.0, Eos % (Auto) 5.8 H, Baso % (Auto) 0.9, Absolute Neuts (auto) 5.0, Absolute Lymphs (auto) 2.25, Nucleated RBC % 0, Sodium 139, Potassium 3.4, Chloride Direct 102, Carbon Dioxide 23.0, Anion Gap 14, BUN 18, Creatinine 1.0, Estim Creat Clear Calc 99.42, Est GFR (MDRD) Non-Af 86, BUN/Creatinine Ratio 17.9, Glucose 134 H, Calcium 9.1 10/10/24 05:51: POC Glucose 151 H 10/10/24 11:08: POC Glucose 144 H Microbiology: Microbiology 10/06/24 22:55 Wound - Finger Gram Stain - Final 10/06/24 22:55 Wound - Finger Wound Culture - Final Meth. resistant Staph. aureus 10/06/24 22:55 Wound - Right Hand Skin and Soft Tissue MRSA/MSSA (PCR - Final D/C Instructions Discharge Diet: Low fat / Low cholesterol and Carb Control Diet Call your doctor if your incision/area has: Continuous Slow Oozing and Increased Redness Call your doctor if you observe: Fever of 101 or Higher, Shortness of breath, Dizziness, Fainting spells, Swelling in the ankles, Chest pain and Increased palpitations (irregular heartbeat) DC O2, CPAP, BIPAP Needs Home O2 Discharge instructions: No Meaningful Use Info Meaningful Use Meaningful Use Diagnoses (Choose all that apply): None applicable Ischemic Stroke Statin Dosing Therapy Reference: STATIN DOSE THERAPY REFERENCE: * Patients > 75 years receive moderate or high dose statin therapy. * Patients 75 years or YOUNGER should receive HIGH intensity statin dose unless contraindicated. You will be required to document reason for non-treatment if statin daily dose does not meet guidelines. HIGH DOSE STATIN THERAPY DAILY Atorvastatin > than or = to 40 mg Rosuvastatin > than or = to 20 mg Amlodipine + Atorvastatin > than or = to 2.5/40 mg Ezetimibe + Simvastatin 10/80 mg Simvastatin 80mg Discharge Plan Admission Admit Date/Time: 10/06/24 20:46 Attending Provider: Cristofer Greene Primary Care Provider: Salvador Barnes Consulting Providers: Tom Middleton; Danica Bowling Instructions Additional Instructions / Restrictions: Plastics discharge instructions Keep the dressing on and in place until clinic appointment tomorrow. If it feels too tight, then loosen it. Call with any questions or concerns. Do not use the operative extremity for now. Continue antibiotics per medicine team. Elevate the hand for pain control Discharge Orders/Prescriptions Prescriptions: New amoxicillin-pot clavulanate 875-125 mg tablet 1 tab PO BID 6 Days Qty: 12 0RF Continued Mounjaro 5 mg/0.5 mL pen injector 5 mg subcut QWEEK Patient Comments: [NO ORIGINAL SIG] Rx Instructions: pts takes q mondays losartan-hydrochlorothiazide 100-25 mg Tablet 1 tab PO DAILY metformin 1,000 mg Tablet 1,000 mg PO DAILY fluoxetine [Prozac] 20 mg Capsule 20 mg PO DAILY Zyrtec 10 mg Capsule 10 mg PO PRN PRN (Reason: allergy symptoms) bupropion HCl 150 mg tablet extended release 24 hr 150 mg PO DAILY amlodipine 10 mg tablet 10 mg PO DAILY Discontinued cephalexin 500 mg capsule 500 mg PO Q6 Qty: 40 0RF Referrals / Follow Up: Salvador Barnes DO [Primary Care Provider] - Within 1 Week Tom Middleton MD [Med Staff - Active Staff] - 10/11/24 1:30 pm Disposition Disposition (needs filled in before D/C Order can be placed): Home, Self Care Charges/Coding Visit Charges Inpatient E&M: 58206 Disch Hosp >30min
== END 2024-10-10 14:53 | disposition home or self-care (01) | DRG 580 ==
LOC: ED 19:33 → MS3 20:57
PROVIDERS: Physician Assistant; Surgery Plastic and Reconstructive Surgery; Admitting Provider Family Medicine; Emergency Provider Emergency Medicine; PCP Family Medicine; Visit Provider Family Medicine
PROC: 0X6Q0Z2 Detachment at Right Middle Finger, Mid, Open Approach (ICD-10-PCS; principal; 2024-10-10 07:15)
DX: L03.011 Cellulitis of right finger (principal); S62.632B Displaced fracture of distal phalanx of right middle finger, initial encounter for open fracture; E11.52 Type 2 diabetes mellitus with diabetic peripheral angiopathy with gangrene; E11.22 Type 2 diabetes mellitus with diabetic chronic kidney disease; E11.628 Type 2 diabetes mellitus with other skin complications; B95.62 Methicillin resistant Staphylococcus aureus infection as the cause of diseases classified elsewhere; G25.81 Restless legs syndrome; I12.9 Hypertensive chronic kidney disease with stage 1 through stage 4 chronic kidney disease, or unspecified chronic kidney disease; F32.A Depression, unspecified; E78.5 Hyperlipidemia, unspecified; K21.9 Gastro-esophageal reflux disease without esophagitis; N18.2 Chronic kidney disease, stage 2 (mild); G47.33 Obstructive sleep apnea (adult) (pediatric); F41.9 Anxiety disorder, unspecified; F17.290 Nicotine dependence, other tobacco product, uncomplicated; E87.6 Hypokalemia; E66.3 Overweight; W23.0XXA Caught, crushed, jammed, or pinched between moving objects, initial encounter; Z68.29 Body mass index [BMI] 29.0-29.9, adult; Z79.2 Long term (current) use of antibiotics; Z79.84 Long term (current) use of oral hypoglycemic drugs; Z79.85 Long-term (current) use of injectable non-insulin antidiabetic drugs; Z79.899 Other long term (current) drug therapy
CPT/HCPCS: 36415; 73140; 80048; 80053; 80202; 82962; 83036; 83735; 85025; 85652; 86140; 87015; 87070; 87075; 87077; 87102; 87116; 87176; 87186; 87205; 87206; 87640; 88311; 93005; 97802; 99284; A4216; J2405

== ENCOUNTER 2024-11-13 13:20 | Outpatient (RCR) | payer BC, SELFPAY ==
--- NOTE | 2024-11-14 10:37 | HP.OTEVAL ---
Patient's Visit Information Visit Information Visit Information: ZAC ROCHA is a 59 year old M, referred to Occupational Therapy by Dr. Tom Middleton MD, with a diagnosis of Acquired absences of limb, Right MF. Date of Evaluation: 11/13/24 Occupational Therapist: Isamar Nunn, CAROL/Magdiel, CHT Subjective Subjective: This 59 year old male was seen for OT eval with dx of right MF amputation pt states his finger was crushed with a log- went to ER and was stitched. few days later was not viable DOI was on 09/29/24 DOS was on 10/10/24. pt states he came to therapy today to figure out what he can put on his finger to protect it a little- states he is good with his ROM he has. feels being able to use his hand without dropping objects will just take some tiime. Pain right MF: Current Pain Intensity: 2 Pain Intensity Range: 4 ROM ROM Comments: pt demo good functional ROM of right MF MCP flexion following amputation Edema PIP: MF right 7.6 left 6 Sensation Sensation Comments: states around end of stump some tingling at times but otherwise ok Quick DASH-Disab of Arm,Shoulder& Hand Quick DASH Score: 10.7125 Goals Goal:Daily scar massage when approriate: Yes Goal:No pain with affected hand use: Yes Goal:PIP Circumferences equal to unaffected hand: Yes Goal:Decrease scar hypersensitivity: Yes Rehabilitation General Assessment: Pt demo with newly amputation of right MF, swelling of stump and limited use of right grasp. Pt would benefit from further skilled OT services 2-4 visits to ensure pt demo understanding of supportive wrapping for edema, review of desensitization zi. and ed. pt on precautions of using right dominate hand with daily tasks. Today pt demo understanding of desensitization- he requested ideas for protecting and wrapping stump- therapist ed. pt on how to use co-band for supportive wrapping and contour of stump- use of digi gel sleeve for protection and use of light elastic finger bandage as well- pt demo understanding and agreed to call or return with questions. Anticipated Interventions Anticipated Interventions: Edema Control, Sensory Retraining, Education re Diagnosis and Home Program Visit Plan Frequency: 1x/Week Duration: 3 Weeks General Plan: pt is going to try and work with his finger on his own- will schedule if he feels he needs to. TEXT: Thank you for the opportunity to evaluate your patient. For Medicare and Medicare HMO plans, please review the plan of care and approve it. It will need to be FAXED BACK to us at [phone] for Medicare purposes. Please let me know if there are questions or concerns regarding this plan of care. Physician Signature: Date:
--- NOTE | 2025-04-17 09:33 | HP.OT.NRP ---
Patient Information Patient Information: ZAC ROCHA was seen in my office for initial evaluation on 11/13/24. The following Plan of Care was established for this patient: POC Established Initial Frequency: 1x/Week Initial Duration: 3 Weeks Anticipated Interventions Anticipated Interventions: Edema Control, Sensory Retraining, Education re Diagnosis and Home Program Last Seen Last Seen: This patient was last seen in our office 11/13/24. Pertinent comments regarding their Occupational therapy will appear below: No further apts have been scheduled and due to time lapse in services pt is d/c. At this point I will be discontinuing this patient from occupational therapy. I would be happy to see this patient again in the future if found appropriate by the physician. Thank you! Isamar Nunn, OTR/L, CHT
== END 2024-11-13 19:00 | disposition home or self-care (01) ==
LOC: OT 13:20
PROVIDERS: PCP Family Medicine; Referring Provider Surgery Plastic and Reconstructive Surgery; Visit Provider Surgery Plastic and Reconstructive Surgery
DX: Z89.9 Acquired absence of limb, unspecified (principal)
CPT/HCPCS: 97166; 97530

== ENCOUNTER → 2025-06-16 | Outpatient (CLI) | payer BC, SELFPAY ==
[2025-06-16 13:08] LABS: Creatinine, Urine (random) 261.00 mg/dL (39.00-259.00); Microalbumin,Random Urine 29.8 mg/L (<20 mg/L)
[2025-06-16 13:19] LABS: AST(SGOT) 29 U/L (<=37); Alanine Aminotransfer ALT/SGPT 22 U/L (<=46); Albumin, Serum 4.6 g/dL (3.5-5.0); Alkaline Phosphatase 51 U/L (40-129); Anion Gap 9 (5-15); BUN 11 mg/dL (4-19); BUN/Creat Ratio 10.6 RATIO (10-20); Calcium,Total 9.5 mg/dL (7.6-11.0); Carbon Dioxide 27.9 mmol/L (21.0-32.0); Chloride 104 mmol/L (98-108); Cholesterol 147 mg/dL (<=200); Globulin 2.8 g/dL (2.2-4.2); Glucose 102 mg/dL (70-99); Low Density Lipoprotein Calc. 78 mg/dL; PSA,Total - Annual Screen 3.35 ng/mL (0.02-4.00); Potassium 3.9 mmol/L (3.3-5.1); Triglycerides 75 mg/dL; Very Low Density Lipoprotein 15 mg/dL (5-40); cholesterol:hdl ratio screen 2.73
== END | disposition home or self-care (01) ==
LOC: BFHLAB 10:21
PROVIDERS: PCP Family Medicine; Visit Provider Family Medicine
DX: Z00.00 Encounter for general adult medical examination without abnormal findings (principal); E11.9 Type 2 diabetes mellitus without complications; Z12.5 Encounter for screening for malignant neoplasm of prostate
CPT/HCPCS: 36415; 80053; 80061; 82043; 82570; 83036; 84153; G0103